=== PATIENT | male | born 1965 | race Caucasian/White ===

== ENCOUNTER 2019-09-22 11:56 | Emergency (ER) | payer SELFPAY ==
[2019-09-22 17:56] VITALS: BP 130/95; O2SAT 98
== END 2019-09-22 16:59 | disposition home or self-care (01) ==
LOC: ER 11:56
DX: R07.9 Chest pain, unspecified (principal); R00.2 Palpitations
CPT/HCPCS: 36415; 71045; 71275; 80048; 80076; 80307; 81003; 83735; 83880; 84484; 85025; 85379; 85610; 93005; 96374; 99285; J7030; Q9967

== ENCOUNTER 2023-08-12 09:40 | Observation (INO) | payer SELFPAY ==
--- OUTSIDE RECORDS SUMMARY | 2023-08-12 09:43 | XMS REPORT | Continuity of Care Document ---
Author Name Unknown Address [address] [facility]. [address] [place] [address] [facility] thconnect Address [address] [facility] [address] [place] [address] Care Team Providers Care Tape Librarian Name Role Phone Unavailable Unavailable Unavailable Encounters Start Date/Time End Date/Time Encounter Type Admission Type Attending Clinicians Care Facility Care Department Encounter ID Source 2023-05-08 11:36:11 2023-05-08 11:36:11 Outpatient [facility] S[facility] [id number] Results Test Description Test Time Test Comments Results Result Co mments Source CBC W/AUTO DIFF WITH [id number] 02:32:21* Test Item Value Reference Range Interpretation Comme nts WBC (test code = 1001) 6.6 K/UL 3.5-11.0 RBC (test code = 1002) 4.71 M/UL 4.50-6.10 HEMOGLOBIN (test code = 1003) 13.7 G/DL 13.5-17.0 HEMATOCRIT (test code = 1004) 42.0 % 40.0-51.0 MCV (test code = 1005) 89.2 fL 80.0-99.0 MCH (test code = 1006) 29.1 PG 25.0-33.0 MCHC (test code = 1007) 32.6 G/DL 31.0-36.0 RDW (test code = 1038) 13.1 % 11.5-15.0 NEUTROPHILS (test code = 1008) 68.6 % LYMPHOCYTES (test code = 1010) 14.9 % MONOCYTES (test code = 1011) 11.3 % EOSINOPHILS (test code = 1012) 3.8 % BASOPHILS (test code = 1013) 1.1 % IMMATURE GRANULOCYTES (test code = 1036) 0.3 % NUCLEATED RBCS (test code = 1065) 0.0 /100 WBC'S See_Comment [Automated messa ge] The system which generated this result transmitted reference range: 0.0. The reference range was not used to interpret this result as normal/abnormal. PLATELET COUNT (test code = 1015) 374 K/UL 130-400 ABSOLUTE NEUTROPHILS (test code = 1066) 4.51 K/UL 1.50-7.50 ABSOLUTE LYMPHOCYTES (test code = 1067) 0.98 K/UL 1.00-4.00 L ABSOLUTE MONOCYTES (test code = 1068) 0.74 K/UL 0.20-1.00 ABSOLUTE EOSINOPHILS (test code = 1040) 0.25 K/UL 0.00-0.50 ABSOLUTE BASOPHILS (test code = 1069) 0.07 K/UL 0.00-0.20 ABS IMMATURE GRANULOCYTES (test code = 1020) 0.02 K/UL 0.00-0.10 ABS NUCLEATED RBCS (test code = 50792) 0.00 K/UL 0.00-0.11 CBC WITH MANUAL [id number] 10:28:52* Test Item Value Reference Range Interpretation Comme nts WBC (test code = 1001) 13.7 K/UL 3.5-11.0 H RBC (test code = 1002) 4.94 M/UL 4.50-6.10 HEMOGLOBIN (test code = 1003) 13.8 G/DL 13.5-17.0 HEMATOCRIT (test code = 1004) 42.0 % 40.0-51.0 MCV (test code = 1005) 85.0 fL 80.0-99.0 MCH (test code = 1006) 27.9 PG 25.0-33.0 MCHC (test code = 1007) 32.9 G/DL 31.0-36.0 RDW (test code = 1038) 14.7 % 11.5-15.0 NEUTROPHILS (test code = 1008) 80.9 % LYMPHOCYTES (test code = 1010) 10.4 % MONOCYTES (test code = 1011) 2.6 % EOSINOPHILS (test code = 1012) 6.1 % BASOPHILS (test code = 1013) 0.0 % PLATELET COUNT (test code = 1015) 406 K/UL 130-400 H ABSOLUTE NEUTROPHILS (test code = 1066) 11.10 K/UL 1.50-7.50 H ABSOLUTE LYMPHOCYTES (test code = 1067) 0.91 K/UL 1.00-4.00 L ABSOLUTE MONOCYTES (test code = 1068) 1.09 K/UL 0.20-1.00 H ABSOLUTE EOSINOPHILS (test code = 1040) 0.49 K/UL 0.00-0.50 ABSOLUTE BASOPHILS (test code = 1069) 0.07 K/UL 0.00-0.20 ABS IMMATURE GRANULOCYTES (test code = 1020) 0.03 K/UL 0.00-0.10 ABS NUCLEATED RBCS (test code = 65275) 0.00 K/UL 0.00-0.11 COMMENTS (test code = 1016) (NOTE) FEW ELLIPTOCYTES PLATELETS APPEAR INCREASED PSA, [id number] 03:59:32* Test Item Value Reference Range Interpretation Comme nts PSA, TOTAL (test code = 2606) 3.05 NG/ML See_Comment NOTE: Methodolog y is Audie Blake Electrochemiluminescence Immunoassay traceable to WHO reference standard 96/760. UNLESS OTHERWISE INDICATED, ALL TESTING PERFORMED [facility] [address] [place] [address] INTERNET SOURCER: LARISSA AVILES M.D. CLIA NUMBER [id number] [facility] [place]. [id number] [Automated message] The system which generated this result transmitted reference range: <=4.00. The reference range was not used to interpret this result as normal/abnormal.
[2023-08-12 10:15] LABS: Hematocrit 46.4 % (39.6-49.0); Lymphocytes % 15.6 % (15.3-44.8); MCV 89.5 fL (80-100); MPV 6.7 fL (7.6-11.3); Platelets 337 thou/uL (152-406); RBC Red Blood Cell Count 5.19 M/uL (4.33-5.43)
[2023-08-12 10:19] LABS: Protime INR 0.97
[2023-08-12] MEDS ORDERED: ASPIRIN 81 MG CHEWABLE TABLET ONE (10:31)
[2023-08-12] MEDS ORDERED: NA CHLORIDE 0.9% 1,000 ML ONE (10:31)
[2023-08-12] MEDS ORDERED: FAMOTIDINE 20 MG/2 ML VIAL IV ONE (10:31)
[2023-08-12 10:37] LABS: ALT/SGPT 17 U/L (16-61); Albumin 3.7 g/dL (3.4-5.0); Alkaline Phosphatase 53 U/L (45-117); BUN Blood Urea Nitrogen 15 mg/dL (7-18); Bicarbonate 30 mEq/L (21-32); Bilirubin Direct 0.1 mg/dL (0-0.2); Bilirubin Indirect, Calculated 0.2 mg/dL (0.2-0.8); Bilirubin Total 0.3 mg/dL (0.2-1.0); Glomerular Filtration Rate 101 ml/min (=/>90); Glucose Level 110 mg/dL (74-106); Lipase 80 U/L (13-75); Magnesium 2.2 mg/dL (1.6-2.4); NT PRO-BNP 21 pg/mL (<125); Potassium 4.1 mEq/L (3.5-5.1); Protein, Total 6.7 g/dL (6.4-8.2); Sodium Level 139 mEq/L (136-145); Troponin High Sensitivity 3.9 pg/mL (<58.9)
[2023-08-12 10:38] LABS: AST/SGOT < 4 U/L (15-37)
--- NOTE | 2023-08-12 11:02 | RAD REPORT ---
EXAM DESCRIPTION: CTChest Abdomen Pelvis W Cont - 08/12/2023 10:51 am CLINICAL HISTORY: Chest pain;Abdominal distention COMPARISON: No comparisons TECHNIQUE: CT of the chest, abdomen, and pelvis was performed with IV contrast. All CT scans are performed using dose optimization technique as appropriate and may include automated exposure control or mA/KV adjustment according to patient size. FINDINGS: Thorax: Chest Wall: No abnormal mass Lungs: No acute abnormality. Pleura: No effusions or pneumothorax. Holly/Mediastinum: No lymphadenopathy. Small hiatal hernia. Mild thickening of distal esophagus could reflect esophagitis. Aorta/Pulmonary Arteries: Unremarkable Heart: Normal size. Abdomen/Pelvis: Liver: Too small to characterize liver lesions which are likely benign. Biliary: No biliary ductal dilatation. Stomach: No significant focal abnormality. Duodenum: No significant focal abnormality. Pancreas: No significant abnormality. Spleen: No significant abnormality. Adrenal: No suspicious lesions. Kidney/ureter: No hydronephrosis. No renal calculi. Retroperitoneum: No retroperitoneal adenopathy. Vascular: No aneurysm. Bowel: Large colonic stool burden.. No appendicitis. Peritoneum: No ascites or free air. Bladder: Question TURP defect at the bladder. Reproductive: The prostate is enlarged measuring 5.3 cm in transverse dimension. Bones: No acute fracture. Transitional L5 vertebral body Other: n/a IMPRESSION: No acute findings within the chest, abdomen, or pelvis. No pulmonary embolus or aortic a neurysm. No significant trauma identified. Small hiatal hernia with mild thickened distal esophagus which could reflect gastroesophageal reflux disease. Endoscopy could better evaluate. Large colonic stool burden.
--- NOTE | 2023-08-12 11:07 | ER ---
Nurse's Notes [facility] Name: De Arnold Jr Age: 57 yrs Sex: Male : 1965 Arrival Date: 08/12/2023 Time: 09:40 Bed 2 Private MD: Diagnosis: Chest pain, unspecified;Angina pectoris, unspecified Presentation: 08/12 09:53 Chief complaint: EMS states: left sided chest pain X 1 hour , feels like twisting pain, iw intermittent. Coronavirus screen: At this time, the client does not indicate any symptoms associated with coronavirus-19. Ebola Screen: Patient negative for fever greater than or equal to 101.5 degrees Fahrenheit, and additional compatible Ebola Virus Disease symptoms Patient denies exposure to infectious person. Patient denies travel to an Ebola-affected area in the 21 days before illness onset. No symptoms or risks identified at this time. Initial Sepsis Screen: Does the patient meet any 2 criteria? No. Patient's initial sepsis screen is negative. Does the patient have a suspected source of infection? No. Patient's initial sepsis screen is negative. Risk Assessment: Do you want to hurt yourself or someone else? Patient reports no desire to harm self or others. Onset of symptoms was August 12, 2023. 09:53 Method Of Arrival: EMS: [facility] iw 09:53 Acuity: MARIBETH 3 iw Historical: - Allergies: 09:54 No Known Allergies; iw - Home Meds: 09:54 Flomax 0.4 mg Oral capsule daily [Active]; iw - PMHx: 09:54 Cancer; iw - PSHx: 09:54 None; iw - Immunization history:: Adult Immunizations not up to date. - Social history:: Smoking status: Patient/guardian denies using tobacco, the patient reports quitting approximately 24 years ago. - Family history:: not pertinent. Screenin:13 [facility] ED Fall Risk Assessment (Adult) Score/Fall Risk Level 0 - 2 = Low Risk. Abuse iw screen: Denies threats or abuse. Denies injuries from another. Nutritional screening: No deficits noted. Tuberculosis screening: No symptoms or risk factors identified. Assessment: 10:12 General: Appears in no apparent distress. Behavior is calm, cooperative. Pain: iw Complains of pain in chest. Pain: Is intermittent. Neuro: Level of Consciousness is awake, alert, obeys commands, Oriented to person, place, time, situation, Moves all extremities. Cardiovascular: Patient's skin is warm and dry. Respiratory: Respiratory effort is even, unlabored, Respiratory pattern is regular, symmetrical. GI: Abdomen is flat, non-distended. Derm: Skin is intact, is healthy with good turgor. 10:40 Reassessment: pt c/o lower abd pain , feels like it's twisted up, he also has iw intermittent diarrhea and he has lost a lot of weight over past year. Vital Signs: 09:53 BP 120 / 91; Pulse 95; Resp 16; Temp 98.1; Pulse Ox 100% on R/A; Weight 49.44 kg; iw Height 5 ft. 7 in. ; Pain 0/10; 10:42 BP 111 / 94; Pulse 85; Resp 18; Pulse Ox 100% on R/A; iw 09:53 Body Mass Index 17.07 (49.44 kg, 170.18 cm) iw 09:53 Pain Scale: Adult iw ED Course: 09:45 Patient arrived in ED. jazmin 09:45 Cortes Monique MD is Attending Physician. jazmin 09:45 Initial lab(s) drawn, by me, sent to lab. Inserted saline lock: 20 gauge in right iw antecubital area, using aseptic technique. 09:51 Sola Bragg, RN is Primary Nurse. iw 09:54 Triage completed. iw 10:12 Arm band placed on. iw 10:12 Patient has correct armband on for positive identification. iw 10:53 CT Chest, Abdomen, Pelvis - W/Contrast In Process Unspecified. EDMS 11:05 XRAY Chest (1 view) In Process Unspecified. EDMS 11:06 Malcolm Lema is Hospitalizing Provider. jazmin 12:54 No provider procedures requiring assistance completed. Patient admitted, IV remains in iw place. Administered Medications: 10:40 Drug: Aspirin PO Chewable Tablet 162 mg PO once Route: PO; iw 11:10 Follow up: Response: No adverse reaction iw 10:40 Drug: NS 0.9% IV 1000 ml IV at 125 ml/hr continuous Route: IV; Rate: 125 ml/hr; Site: iw right antecubital; 12:55 Follow up: IV Status: Infusion continued upon admission iw 10:40 Drug: Famotidine IVP 20 mg IVP once; dilute with 10 mL 0.9% NaCl; give over 2 minutes iw Route: IVP; Site: right antecubital; 11:00 Follow up: Response: No adverse reaction iw Medication: 10:13 VIS not applicable for this client. iw Outcome: 11:06 Decision to Hospitalize by Provider. jazmin 12:55 Admitted to Med/surg accompanied by tech, via wheelchair, room 229, iw 12:55 Condition: good 12:55 Discharge instructions given to patient, family, Instructed on the need for admit, Demonstrated understanding of instructions, 12:55 Patient left the ED. iw Signatures: Dispatcher [employer] Cortes Jorgensen MD MD cha Williams, Irene RN RN iw
--- NOTE | 2023-08-12 11:07 | EDPHYS ---
Physician Documentation [facility] Name: De Arnold Jr Age: 57 yrs Sex: Male : 1965 Arrival Date: 08/12/2023 Time: 09:40 Bed 2 Private MD: ED Physician Cortes Monique HPI: 08/12 09:48 This 57 yrs old Male presents to ER via Unassigned with complaints of cp this jazmin am, last week too. 09:48 The patient or guardian reports chest pain that is located primarily in the substernal jazmin area, anterior chest wall, left. Onset: just prior to arrival. The pain radiates to the right arm. Associated signs and symptoms: Pertinent positives: dizziness. The chest pain is described as squeezing. Duration: The patient or guardian reports a single episode, that is now resolved. Modifying factors: The symptoms are alleviated by nothing. the symptoms are aggravated by nothing. Severity of pain: At its worst the pain was moderate in the emergency department the pain has resolved and did so just prior to arrival. The patient has experienced similar episodes in the past, a few times. Historical: - Allergies: 09:54 No Known Allergies; iw - Home Meds: :54 Flomax 0.4 mg Oral capsule daily [Active]; iw - PMHx: 09:54 Cancer; iw - PSHx: :54 None; iw - Immunization history:: Adult Immunizations not up to date. - Social history:: Smoking status: Patient/guardian denies using tobacco, the patient reports quitting approximately 24 years ago. - Family history:: not pertinent. ROS: 09:48 Constitutional: Negative for fever, chills, and weight loss, Eyes: Negative for injury, jazmin pain, redness, and discharge, ENT: Negative for injury, pain, and discharge, Neck: Negative for injury, pain, and swelling, Respiratory: Negative for shortness of breath, cough, wheezing, and pleuritic chest pain, Abdomen/GI: Negative for abdominal pain, nausea, vomiting, diarrhea, and constipation, Back: Negative for injury and pain, : Negative for injury, bleeding, discharge, and swelling, MS/Extremity: Negative for injury and deformity, Skin: Negative for injury, rash, and discoloration, Neuro: Negative for headache, weakness, numbness, tingling, and seizure, Psych: Negative for depression, anxiety, suicide ideation, homicidal ideation, and hallucinations, Allergy/Immunology: Negative for hives, rash, and allergies, Endocrine: Negative for neck swelling, polydipsia, polyuria, polyphagia, and marked weight changes, Hematologic/Lymphatic: Negative for swollen nodes, abnormal bleeding, and unusual bruising, 09:48 Cardiovascular: Positive for chest pain, of the chest, Exam: 09:48 Constitutional: This is a well developed, well nourished patient who is awake, alert, jazmin and in no acute distress. Head/Face: Normocephalic, atraumatic. Eyes: Pupils equal round and reactive to light, extra-ocular motions intact. Lids and lashes normal. Conjunctiva and sclera are non-icteric and not injected. Cornea within normal limits. Periorbital areas with no swelling, redness, or edema. ENT: Nares patent. No nasal discharge, no septal abnormalities noted. Tympanic membranes are normal and external auditory canals are clear. Oropharynx with no redness, swelling, or masses, exudates, or evidence of obstruction, uvula midline. Mucous membranes moist. Neck: Trachea midline, no thyromegaly or masses palpated, and no cervical lymphadenopathy. Supple, full range of motion without nuchal rigidity, or vertebral point tenderness. No Meningismus. Chest/axilla: Normal chest wall appearance and motion. Nontender with no deformity. No lesions are appreciated. Cardiovascular: Regular rate and rhythm with a normal S1 and S2. No gallops, murmurs, or rubs. Normal PMI, no JVD. No pulse deficits. Respiratory: Lungs have equal breath sounds bilaterally, clear to auscultation and percussion. No rales, rhonchi or wheezes noted. No increased work of breathing, no retractions or nasal flaring. Abdomen/GI: Soft, non-tender, with normal bowel sounds. No distension or tympany. No guarding or rebound. No evidence of tenderness throughout. Back: No spinal tenderness. No costovertebral tenderness. Full range of motion. Male : Normal genitalia with no discharge or lesions. Skin: Warm, dry with normal turgor. Normal color with no rashes, no lesions, and no evidence of cellulitis. MS/ Extremity: Pulses equal, no cyanosis. Neurovascular intact. Full, normal range of motion. Neuro: Awake and alert, GCS 15, oriented to person, place, time, and situation. Cranial nerves II-XII grossly intact. Motor strength 5/5 in all extremities. Sensory grossly intact. Cerebellar exam normal. Normal gait. Psych: Awake, alert, with orientation to person, place and time. Behavior, mood, and affect are within normal limits. 10:18 ECG was reviewed by the Attending Physician. [facility] Vital Signs: 09:53 BP 120 / 91; Pulse 95; Resp 16; Temp 98.1; Pulse Ox 100% on R/A; Weight 49.44 kg; iw Height 5 ft. 7 in. ; Pain 0/10; 10:42 BP 111 / 94; Pulse 85; Resp 18; Pulse Ox 100% on R/A; iw 09:53 Body Mass Index 17.07 (49.44 kg, 170.18 cm) iw 09:53 Pain Scale: Adult iw MDM: 09:45 Patient medically screened. jazmin 09:46 Patient medically screened. jazmin 09:52 Differential diagnosis: abnormal EKG, acute myocardial infarction, acute pericarditis, jazmin anxiety, chest wall pain, Cholelithiasis pancreatitis, peptic ulcer disease, stable angina, unstable angina. HEART Score: History: Slightly Suspicious (0), ECG: Non specific repolarization disturbance / LBTB / PM (1), Age: > 45 and < 65 years (1), Risk Factors: 1 or 2 risk factors (1), [+ Family HX] Troponin: < or = 1 x Normal Limit (0). The patient was given aspirin in the Emergency Department. Data reviewed: vital signs, nurses notes, lab test result(s), EKG, radiologic studies, plain films. Consideration of Admission/Observation Patient was admitted/placed on observation. Escalation of care including admission/observation considered. I considered the following discharge prescriptions or medication management in the emergency department Medications were administered in the Emergency Department. See 09:47 Order name: Basic Metabolic Panel; Complete Time: 11:08/12 09:47 Order name: CBC with Diff; Complete Time: 11:08/12 09:47 Order name: LFT's; Complete Time: 11: jazmin 08/12 09:47 Order name: Magnesium; Complete Time: 11: [facility] 08/12 09:47 Order name: NT PRO-BNP; Complete Time: 11:03 [facility] 08/12 09:47 Order name: PT-INR; Complete Time: 11:03 [facility] 08/12 09:47 Order name: Troponin HS; Complete Time: 11:03 [facility] 08/12 09:47 Order name: Lipase; Complete Time: 11:03 [facility] 08/12 09:47 Order name: Urinalysis w/ reflexes; Complete Time: 12:12 [facility] 08/12 09:47 Order name: XRAY Chest (1 view); Complete Time: 12:12 [facility] 08/12 10:38 Order name: CT Chest, Abdomen, Pelvis - W/Contrast; Complete Time: 11:03 [facility] 08/12 09:47 Order name: EKG; Complete Time: 09:48 [facility] 08/12 12:02 Order name: CONS Physician Consult EDDC 08/12 09:47 Order name: Cardiac monitoring; Complete Time: 09:52 [facility] 08/12 09:47 Order name: EKG - Nurse/Tech; Complete Time: 09:52 [facility] 08/12 09:47 Order name: IV Saline Lock; Complete Time: 10:05 [facility] 08/12 09:47 Order name: Labs collected and sent; Complete Time: 10:05 [facility] 08/12 09:47 Order name: O2 Per Protocol; Complete Time: 09:52 [facility] 08/12 09:47 Order name: O2 Sat Monitoring; Complete Time: 09:52 [facility] EC:18 Rate is 88 beats/min. Rhythm is regular. QRS [place] is Normal. [place] interval is normal. QRS jazmin interval is normal. QT interval is normal. No Q waves. T waves are Normal. No ST changes noted. Clinical impression: NSR w/ Non-specific ST/T Changes and No evidence of ischemia. Interpreted by me. Reviewed by me. Administered Medications: 10:40 Drug: Aspirin PO Chewable Tablet 162 mg PO once Route: PO; iw 11:10 Follow up: Response: No adverse reaction iw 10:40 Drug: NS 0.9% IV 1000 ml IV at 125 ml/hr continuous Route: IV; Rate: 125 ml/hr; Site: iw right antecubital; 12:55 Follow up: IV Status: Infusion continued upon admission iw 10:40 Drug: Famotidine IVP 20 mg IVP once; dilute with 10 mL 0.9% NaCl; give over 2 minutes iw Route: IVP; Site: right antecubital; 11:00 Follow up: Response: No adverse reaction iw Disposition Summary: 08/12/23 11:06 Hospitalization Ordered Notes: Hospitalization Status: Observation jazmin Provider: Malcolm Lema cha Location: Telemetry/MedSurg (observation) jazmin Condition: Stable jazmin Problem: new jazmin Symptoms: have improved jazmin Bed/Room Type: Standard [facility] Room Assignment: 229(08/12/23 12:12) bd Diagnosis - Chest pain, unspecified jazmin - Angina pectoris, unspecified jazmin Forms: - Medication Reconciliation Form jazmin - SBAR form jazmin - Leadership Thank You Letter jazmin Signatures: Dispatcher [employer] EDKaylen Barakat Corey, MD MD cha Williams, Irene, RN RN iw Corrections: (The following items were deleted from the chart) 12:12 11:06 jazmin bd
--- NOTE | 2023-08-12 11:12 | RAD REPORT ---
EXAM DESCRIPTION: RAD - Chest Single View - 08/12/2023 11:04 am CLINICAL HISTORY: CHEST PAIN COMPARISON: Chest Single View dated 09/22/2019 FINDINGS: Lines: None. Lungs: No evidence of edema or pneumonia. Pleural: No significant pleural effusions or pneumothorax. Cardiac: The heart size is within normal limits. Mediastinum: Within normal limits. Bones: No acute fractures. Other: None IMPRESSION: No acute cardiopulmonary disease.
[2023-08-12 11:24] LABS: Specific Gravity 1.014 (1.005-1.030); Urine Bacteria None Seen /HPF (<20); Urine Bilirubin NEGATIVE (Negative); Urine Blood Negative (Negative); Urine Clarity Turbid (Clear); Urine Color Light-Yellow (Yellow); Urine Glucose NEGATIVE (Negative); Urine Mucus Slight /HPF (None Seen); Urine Protein NEGATIVE (Negative); Urine RBC <5 /HPF (None Seen); Urine Urobilinogen Normal (Normal); Urine pH 7.5 (5.0-7.0)
--- NOTE | 2023-08-12 11:46 | P.HP ---
Certification for Inpatient Patient admitted to: Observation With expected LOS: <2 Midnights Patient will require the following post-hospital care: None Practitioner: I am a practitioner with admitting privileges, knowledge of patient current condition, hospital course, and medical plan of care. Services: Services provided to patient in accordance with Admission requirements found in Title 42 Section 412.3 of the Code of Federal Regulations Patient History Date of Service: 08/12/23 Reason for admission: Chest pain r/o History of Present Illness: De Arnold is a 57-year-old male with past medical history of throat cancer who presents to the ED with complaints of chest pain this morning as well as last week. His chest pain is located in the substernal area anterior chest wall. Pain radiates to the right arm associated with dizziness and nausea. Chest pain is described as squeezing. He states he has not had this kind of chest pain before. He has a history of throat cancer which was stage III, underwent 5-FU chemotherapy and greater than 20 radiations sessions to his neck making him at a higher risk for CAD. He has a heart score of 2. He reports losing weight in the recent 6 months. He reports his weight loss to taking Flomax but continues to take it so that he can urinate. Initial vitals BP 120 / 91; Pulse 95; Resp 16; Temp 98.1; Pulse Ox 100% on R/A; Weight 49.44 kg EKG shows Rate is 88 beats/min. Rhythm is regular. QRS [place] is Normal. [place] interval is normal. QRS interval is normal. QT interval is normal. No Q waves. T waves are Normal. No ST changes noted. Clinical impression: NSR w/ Non-specific ST/T Changes and No evidence of ischemia. Laboratory evaluation troponin 21, lipase 80, UA negative, other results unrema rkable. Chest x-ray reports "No acute cardiopulmonary disease." CT chest abdomen pelvis with contrast reports "No acute findings within the chest, abdomen, or pelvis. No pulmonary embolus or aortic aneurysm. No significant trauma identified. Small hiatal hernia with mild thickened distal esophagus which could reflect gastroesophageal reflux disease. Endoscopy could better evaluate." De will be admitted to hospitalist service for further evaluation and treatment. Allergies No Known Allergies Allergy (Unverified 08/12/23 12:15) Home Medications: Tamsulosin HCl 0.4 mg PO BID 08/12/23 Review of Systems Cardiovascular: Chest Pain (radiating down the right arm) Gastrointestinal: Nausea Physical Examination - Physical Exam General: Alert, In no apparent distress, Oriented x3, Cachectic HEENT: Atraumatic, Normocephalic, PERRLA Neck: Supple, 2+ carotid pulse no bruit, JVD not distended Respiratory: Clear to auscultation bilaterally, Normal air movement Cardiovascular: No edema, Normal pulses, Regular rate/rhythm, Normal S1 S2 Capillary refill: <2 Seconds Gastrointestinal: Normal bowel sounds, Soft and benign Musculoskeletal: No clubbing, No swelling, No contractures Integumentary: No rashes, No breakdown, No significant lesion, No tenderness/swelling Neurological: Normal speech, Normal strength at 5/5 x4 extr, Normal tone - Studies Laboratory Data (last 24 hrs) 08/12/23 08/12/23 08/12/23 10:04 10:04 10:04 WBC 6.40 Hgb 15.5 Hct 46.4 Plt Count 337 PT 10.7 INR 0.97 Sodium 139 Potassium 4.1 BUN 15 Creatinine 0.84 Glucose 110 H Magnesium 2.2 Total Bilirubin 0.3 AST < 4 L ALT 17 Alkaline Phosphatase 53 Lipase 80 H Assessment and Plan - Plan Assessment and plan Chest pain r/o ACS - EK beats/min. Rhythm is regular. QRS [place] is Normal. [place] interval is normal. QRS interval is normal. QT interval is normal. No Q waves. T waves are Normal. No ST changes noted. Clinical impression: NSR w/ Non-specific ST/T Changes and No evidence of ischemia. - Vital signs stable - Troponin 21, Serial pending - Ordered transthoracic echocardiogram - Chest x-ray reports "No acute cardiopulmonary disease." - Management plan: - Consult Cardiology (Dr. Shetty) - recommendations appreciated - S/P aspirin 162 mg PO x 1 in ED - Start daily baby aspirin, statin - lipid panel pending - Symptom control with PRN acetaminophen, nitroglycerin, morphine - If CAD is confirmed, plan to start beta-milo, TA-inhibitor/ARB, statin with 24 hours Elevated Lipase - lipase 80 -monitor in AM labs -IVF given in the ED Hiatal hernia -De is aware -CT chest abdomen pelvis with contrast reports No acute findings within the chest, abdomen, or pelvis. No pulmonary embolus or aortic aneurysm. No significant trauma identified. Small hiatal hernia with mild thickened distal esophagus which could reflect gastroesophageal reflux disease. -Follow up outpatient for EGD -Protonix 40 mg Daily DVT ppx lovenox DNR LOS 2 days Discharge Plan: Home Plan to discharge in: 24 Hours - Advance Directives Does patient have a Living Will: No Does patient have a Durable POA for Healthcare: No Time Spent Managing Pts Care (In Minutes): 50
[2023-08-12] MEDS ORDERED: NITROGLYCERIN 0.4 MG/TAB SL PRN (12:50)
[2023-08-12] MEDS ORDERED: MORPHINE 2 MG/ML SYR IV PRN (12:50)
[2023-08-12] MEDS ORDERED: ACETAMINOPHEN 500 MG TAB PO PRN (13:21)
[2023-08-12 13:33] VITALS: BMI 17.0
[2023-08-12 13:52] LABS: Absolute Lymphocytes (CBC) 1.1 K/uL (0.7-4.9); Lymphocytes % 18.1 % (15.3-44.8); MCV 89.7 fL (80-100); MPV 6.6 fL (7.6-11.3); Platelets 334 thou/uL (152-406); RBC Red Blood Cell Count 5.13 M/uL (4.33-5.43)
[2023-08-12 14:04] LABS: Potassium 4.7 mEq/L (3.5-5.1)
--- NOTE | 2023-08-12 14:26 | EKG ---
Test Date: 2023-08-12 Test Time: 13:06:00 Manager Benefit: HOA MEASUREMENT RESULTS: Intervals: Rate: 74 NM: 134 QRSD: 86 QT: 376 QTc: 417 [place]: P: 82 NM: 134 QRS: 83 T: 84 INTERPRETIVE STATEMENTS: Normal sinus rhythm Normal ECG Compared to ECG 09/22/2019 11:56:20 No significant changes Electronically Signed On 08-12-23 14:25:35 DIESEL CRANE OPERATOR by Ramy Connelly
--- NOTE | 2023-08-12 14:27 | EKG ---
Test Date: 2023-08-12 Test Time: 09:48:45 Sampler Radioactive Waste: SWETHA MEASUREMENT RESULTS: Intervals: Rate: 88 NH: 128 QRSD: 90 QT: 356 QTc: 430 [place]: P: 84 NH: 128 QRS: 84 T: 83 INTERPRETIVE STATEMENTS: Normal sinus rhythm Right atrial enlargement Borderline ECG Compared to ECG 09/22/2019 11:56:20 Atrial abnormality now present Electronically Signed On 08-12-23 14:25:54 LEAN CONSULTANT by Ramy Connelly
[2023-08-12] MEDS: TAMSULOSIN 0.4 MG SR CAP PO SCH (20:44)
[2023-08-12] MEDS: ATORVASTATIN 40 MG TAB PO SCH (20:44)
[2023-08-13 05:20] LABS: Absolute Lymphocytes (CBC) 1.4 K/uL (0.7-4.9); Hematocrit 42.4 % (39.6-49.0); Lymphocytes % 21.6 % (15.3-44.8); MPV 6.8 fL (7.6-11.3); Platelets 311 thou/uL (152-406); RBC Red Blood Cell Count 4.77 M/uL (4.33-5.43)
[2023-08-13 05:30] LABS: Magnesium 2.2 mg/dL (1.6-2.4); Phosphorus 2.8 mg/dL (2.5-4.9); Potassium 4.1 mEq/L (3.5-5.1)
[2023-08-13] MEDS: ASPIRIN EC 81 MG TAB PO SCH (08:50)
[2023-08-13] MEDS: ENOXAPARIN 40 MG/0.4 ML SQ SCH (08:50)
--- NOTE | 2023-08-13 10:49 | P.CNS ---
Date of Consult: 08/13/23 Chief Complaint: Chest pain r/o History of Present Illness: patient with PMH of throat cancer s/p rosa elena, says he is in remission presented with chest pressure sensation and right arm pain, report having such episodes in the past, patient is chest pain free on interview today. Allergies No Known Allergies Allergy (Unverified 08/12/23 12:15) Home Medications: Tamsulosin HCl 0.4 mg PO BID 08/12/23 - Social History Alcohol use: No CD- Drugs: No Caffeine use: Yes Place of Residence: Home Review of Systems 10-point ROS is otherwise unremarkable Physical Examination Temp Pulse Resp BP Pulse Ox 97.3 F 82 18 108/73 97 08/13/23 04:00 08/13/23 04:00 08/13/23 04:00 08/13/23 04:00 08/13/23 04:00 General: Alert HEENT: Atraumatic Neck: Supple Respiratory: Clear to auscultation bilaterally Cardiovascular: No edema, Normal S1 S2, No murmurs Gastrointestinal: Normal bowel sounds Laboratory Data (last 24 hrs) 08/12/23 05:00 WBC Cancelled Hgb Cancelled Hct Cancelled Plt Count Cancelled - Problems (1) Chest pain Current Visit: Yes Status: Acute Plan: please get nuclear stress test in am, keep NPO past midnight. Patient echo was reviewed and it is normal
--- NOTE | 2023-08-13 11:47 | ECHO ---
HEIGHT: 5 ft 7 in WEIGHT: 109 lb 0 oz DATE OF STUDY: 08/13/[address]: Lety Woodard NP 2-DIMENSIONAL: YES M.MODE: YES DOPPLER: YES COLOR FLOW: YES TDS: PORTABLE: YES DEFINITY: BUBBLE STUDY: DIAGNOSIS: CHEST PAIN, RULE OUT ACUTE CORNONARY SYNDROME CARDIAC HISTORY: CATHERIZATION: NO SURGERY: NO PROSTHETIC VALVE: NO PACEMAKER: NO MEASUREMENTS (cm) DIASTOLIC (NORMALS) SYSTOLIC (NORMALS) IVSd 0.7 (0.6-1.2) LA Diam 1.8 (1.9-4.0) LVEF 64% LVIDd 3.5 (3.5-5.7) LVIDs 2.3 (2.0-3.5) %FS 34% LVPWd 0.9 (0.6-1.2) Ao Diam 3.0 (2.0-3.7) 2 DIMENSIONAL ASSESSMENT: RIGHT ATRIUM: NORMAL LEFT ATRIUM: NORMAL RIGHT VENTRICLE: NORMAL LEFT VENTRICLE: NORMAL TRICUSPID VALVE: NORMAL MITRAL VALVE: NORMAL PULMONIC VALVE: NORMAL AORTIC VALVE: NORMAL PERICARDIAL EFFUSION: SMALL LOCALIZED POSTERIOR AORTIC ROOT: NORMAL LEFT VENTRICULAR WALL MOTION: NORMAL DOPPLER/COLOR FLOW: NORMAL COMMENTS: 1. NORMAL LEFT VENTRICULAR SYSTOLIC FUNCTION, EJECTION FRACTION 55-60%, NORMAL WALL MOTION 2. NORMAL DIASTOLIC FUNCTION 3. SMALL LOCALIZED POSTERIOR PERICARDIAL EFFUSION 4. NORMAL FILLING PRESSURE TECHNOLOGIST: CALVIN HARDEN
[2023-08-13] MEDS: PANTOPRAZOLE 40MG TABLET PO SCH (12:15)
--- NOTE | 2023-08-13 13:50 | P.PN ---
Date of Service: 08/13/23 Subjective: Complaining of urinary frequency, urgency ROS: 10 point ROS as noted above, otherwise negative Physical exam GEN: Alert, oriented, NAD HEENT: Normal conjunctiva, sclera anicteric CV: Regular rate and rhythm, no edema Pulm: Nonlabored respirations on room air ABD: Soft, mild epigastric abdominal tenderness, nondistended MSK: No joint tenderness Integumentary: No rashes Neuro: Normal speech, normal affect Vitals reviewed Assessment and plan Chest pain r/o ACS Cardiology consulted, echocardiogram reportedly normal Cardiology request tress test ordered for morning of 08/14 Continue aspirin, statin BPH Has been taking Flomax at home at night which helps with the urinary frequency/urgency Patient reports a multitude of side effects with Flomax including orthostatic hypotension, vomiting/diarrhea Will perform pre and postvoid residual bladder scan Recommend outpatient follow-up with urology Work and other options for management BPH aside from Flomax Elevated Lipase Very mildly elevated, repeat lipase level in the morning Does have some mild epigastric tenderness but also CT showed thickened distal esophagus which may be contributing to epigastric pain Tolerating diet Hiatal hernia with CT showing distal esophageal thickening -De is aware -CT chest abdomen pelvis with contrast reports No acute findings within the chest, abdomen, or pelvis. No pulmonary embolus or aortic aneurysm. No significant trauma identified. Small hiatal hernia with mild thickened distal esophagus which could reflect gastroesophageal reflux disease. -Follow up outpatient for EGD -Protonix 40 mg Daily DVT ppx lovenox DNR LOS 2 days Time Spent Managing Pts Care (In Minutes): 35
[2023-08-13] MEDS: ENSURE ENLIVE 237 ML CAN PO SCH (20:16)
[2023-08-14 00:33] VITALS: O2SAT 98
[2023-08-14 04:43] LABS: Absolute Lymphocytes (CBC) 1.3 K/uL (0.7-4.9); Hematocrit 45.4 % (39.6-49.0); Lymphocytes % 14.9 % (15.3-44.8); MCV 88.9 fL (80-100); MPV 6.8 fL (7.6-11.3); Platelets 350 thou/uL (152-406); RBC Red Blood Cell Count 5.11 M/uL (4.33-5.43)
[2023-08-14 04:55] LABS: Magnesium 2.3 mg/dL (1.6-2.4); Phosphorus 3.4 mg/dL (2.5-4.9); Potassium 4.7 mEq/L (3.5-5.1)
[2023-08-14] MEDS ORDERED: REGADENOSON 0.4 MG/5 ML SYR IV ONE (09:10)
[2023-08-14] MEDS: ONDANSETRON 4 MG/2 ML VIAL IV ONE (09:33)
[2023-08-14] MEDS ORDERED: ONDANSETRON 4 MG/2 ML VIAL ONE (09:36)
[2023-08-14 11:00] VITALS: BP 110/74; TEMP 97.1
--- NOTE | 2023-08-14 12:36 | RAD REPORT ---
EXAM DESCRIPTION: NM - Rest Stress Cardiac Imaging - 08/14/2023 10:03 am CLINICAL HISTORY: CP Chest pain. COMPARISON: No comparisons TECHNIQUE: The patient was administered approximately 10mCi of Tc 99m Sestamibi prior to resting SPE CT imaging of the heart. The patient was then administered approximately 30 mCi of Tc 99m Sestamibi f ollowing exercise or pharmacologic stress. Multiplanar SPECT images were reviewed. FINDINGS: No stress induced ischemic defect is seen to suggest stress induced ischemia. No fixed def ect is seen to suggest hibernating myocardium or scarred myocardium. The end diastolic volume is 75 ml, the end systolic volume is 31 ml, and the ejection fraction is 59 %. IMPRESSION: No stress induced ischemia.
--- NOTE | 2023-08-14 13:45 | P.DS ---
Admission Date: 08/12/23 Discharge Date: 08/14/23 Disposition: ROUTINE DISCHARGE Discharge Condition: GOOD Reason for Admission: Chest pain r/o Brief History of Present Illness: De Arnold is a 57-year-old male with past medical history of throat cancer who presents to the ED with complaints of chest pain this morning as well as last week. His chest pain is located in the substernal area anterior chest wall. Pain radiates to the right arm associated with dizziness and nausea. Chest pain is described as squeezing. He states he has not had this kind of chest pain before. He has a history of throat cancer which was stage III, underwent 5-FU chemotherapy and greater than 20 radiations sessions to his neck making him at a higher risk for CAD. He has a heart score of 2. He reports losing weight in the recent 6 months. He reports his weight loss to taking Flomax but continues to take it so that he can urinate. Initial vitals BP 120 / 91; Pulse 95; Resp 16; Temp 98.1; Pulse Ox 100% on R/A; Weight 49.44 kg EKG shows Rate is 88 beats/min. Rhythm is regular. QRS [place] is Normal. [place] interval is normal. QRS interval is normal. QT interval is normal. No Q waves. T waves are Normal. No ST changes noted. Clinical impression: NSR w/ Non-specific ST/T Changes and No evidence of ischemia. Laboratory evaluation troponin 21, lipase 80, UA negative, other results unremarkable. Chest x-ray reports "No acute cardiopulmonary disease." CT chest abdomen pelvis with contrast reports "No acute findings within the chest, abdomen, or pelvis. No pulmonary embolus or aortic aneurysm. No significant trauma identified. Small hiatal hernia with mild thickened distal esophagus which could reflect gastroesophageal reflux disease. Endoscopy could better evaluate." De will be admitted to hospitalist service for further evaluation and treatment. Hospital Course: Problem List Chest pain r/o ACS BPH Elevated Lipase Hiatal hernia with CT showing distal esophageal thickening Patient was admitted to the hospital for chest pain. He was evaluated by cardiology who recommended echocardiogram and stress test be performed, echocardiogram was performed and showed normal left ventricular ejection fraction, normal diastolic function, small localized posterior pericardial effusion, normal filling pressure. Stress test was performed and showed no stress-induced ischemia. A CT was performed of his chest abdomen pelvis which showed distal esophageal thickening, this was discussed with the patient recommend outpatient evaluation for by GI for EGD, may reflect GERD but cannot rule out more findings such as malignancy. Of note patient also reported urinary frequency, urgency. He was taking Flomax but had significant orthostatic hypotension, syncope and other adverse effects, we will discontinue this medication and start alfuzosin 10 mg once daily. Recommend outpatient follow-up with urology, prostate is enlarged on CT as well as 5.3 cm. Patient also reported poor oral nutrition since he had his radiation to his throat, he will also be sent Ensure to supplement his nutrition. New medications: Protonix 40 mg once daily-for GERD/reflux because of CT scan findings of the thickening of the distal esophagus Alfuzosin 10 mg by mouth once daily for BPH/urinary problems Ensure-twice daily for nutrition Please follow-up with: Dr. Metcalf with urology as soon as possible Gastrointestinal physician-information for Dr. Tony has been provided, you should follow-up with the GI doctor had to have direct visualization of your distal esophagus with EGD A primary care doctor in the area in 1 to 2 weeks Vital Signs/Physical Exam: Temp Pulse Resp BP Pulse Ox 97.1 F 87 16 110/74 99 08/14/23 08:00 08/14/23 08:00 08/14/23 08:00 08/14/23 08:00 08/14/23 08:00 General: Alert, In no apparent distress, Oriented x3 HEENT: Atraumatic, PERRLA Neck: Supple, JVD not distended Respiratory: Clear to auscultation bilaterally, Normal air movement Cardiovascular: Regular rate/rhythm, Normal S1 S2 Gastrointestinal: Normal bowel sounds, No tenderness Musculoskeletal: No tenderness Integumentary: No rashes Neurological: Normal speech, Normal tone Laboratory Data at Discharge: WBC 8.40 thou/uL (4.3-10.9) 08/14/23 04:12 Hgb 15.3 g/dL (13.6-17.9) 08/14/23 04:12 Hct 45.4 % (39.6-49.0) 08/14/23 04:12 Plt Count 350 thou/uL (152-406) 08/14/23 04:12 PT 10.7 SECONDS (9.5-12.5) 08/12/23 10:04 INR 0.97 08/12/23 10:04 Sodium 135 mEq/L (136-145) L 08/14/23 04:12 Potassium 4.7 mEq/L (3.5-5.1) D 08/14/23 04:12 BUN 25 mg/dL (7-18) H 08/14/23 04:12 Creatinine 0.74 mg/dL (0.70-1.30) 08/14/23 04:12 Glucose 100 mg/dL (74-106) 08/14/23 04:12 Phosphorus 3.4 mg/dL (2.5-4.9) 08/14/23 04:12 Magnesium 2.3 mg/dL (1.6-2.4) 08/14/23 04:12 Total Bilirubin 0.3 mg/dL (0.2-1.0) 08/12/23 10:04 AST < 4 U/L (15-37) L 08/12/23 10:04 ALT 17 U/L (16-61) 08/12/23 10:04 Alkaline Phosphatase 53 U/L (45-117) 08/12/23 10:04 Triglycerides 108 mg/dL (<150) 08/12/23 13:42 Cholesterol 203 mg/dL (<200) H 08/12/23 13:42 HDL Cholesterol 62 mg/dL (40-60) H 08/12/23 13:42 Cholesterol/HDL Ratio 3.27 08/12/23 13:42 Lipase 143 U/L (13-75) H 08/14/23 04:12 Home Medications: Alfuzosin HCl [Alfuzosin HCl ER] 10 mg PO DAILY #30 tab 08/14/23 Ensure Enlive 237 ml PO BID #60 can 08/14/23 Pantoprazole [Protonix Tab] 40 mg PO DAILY #30 tab 08/14/23 New Medications: Alfuzosin HCl [Alfuzosin HCl ER] 10 mg PO DAILY #30 tab Ensure Enlive 237 ml PO BID #60 can Pantoprazole [Protonix Tab] 40 mg PO DAILY #30 tab Physician Discharge Instructions: Patient was admitted to the hospital for chest pain. He was evaluated by cardiology who recommended echocardiogram and stress test be performed, echocardiogram was performed and showed normal left ventricular ejection fraction, normal diastolic function, small localized posterior pericardial effusion, normal filling pressure. Stress test was performed and showed no stress-induced ischemia. A CT was performed of his chest abdomen pelvis which showed distal esophageal thickening, this was discussed with the patient recommend outpatient evaluation for by GI for EGD, may reflect GERD but cannot rule out more findings such as malignancy. Of note patient also reported urinary frequency, urgency. He was taking Flomax but had significant orthostatic hypotension, syncope and other adverse effects, we will discontinue this medication and start alfuzosin 10 mg once daily. Recommend outpatient follow-up with urology, prostate is enlarged on CT as well as 5.3 cm. Patient also reported poor oral nutrition since he had his radiation to his throat, he will also be sent Ensure to supplement his nutrition. New medications: Protonix 40 mg once daily-for GERD/reflux because of CT scan findings of the thickening of the distal esophagus Alfuzosin 10 mg by mouth once daily for BPH/urinary problems Ensure-twice daily for nutrition Please follow-up with: Dr. Metcalf with urology as soon as possible Gastrointestinal physician-information for Dr. Tony has been provided, you should follow-up with the GI doctor had to have direct visualization of your distal esophagus with EGD A primary care doctor in the area in 1 to 2 weeks Diet: Regular Activity: Ad alicia Followup: SANDEE IGNACIO [Primary Care Provider] - 1-2 Weeks Kamron Paulino MD [ASSOCIATE-ACTIVE - CAN ADMIT] - 1-2 Weeks Judson Metcalf [ACTIVE - CAN ADMIT] - 1-2 Weeks Time spent managing pt's care (in minutes): 30
--- NOTE | 2023-08-14 14:25 | TREADPHA ---
DX: CHEST PAIN Date of Study: 08/14/2023 Ht: 5' 7 " Wt: 109 lb 0 oz Consulting Physician: BORIS MEDICATIONS: TYLENOL, ASPIRIN, LIPITOR, MORPHINE, NITROSTAT, PROTONIX HISTORY: DENIES ANY MEDICAL HEALTH HISTORY PHYSICIAL EXAMINATION: RESTING B.P.: 113/82 RESTING H.R.: 82 RESTING EKG: SINUS RHYTHM PROTOCOL: PHARMACOLOGIC EXERCISE TIME: 3:30 B.P. AT [place] STRESS: 97/67 IMPRESSION: LEXISCAN INJECTED. CARDIOLITE INJECTED - SEE NUCLEAR MEDICINE REPORT. NO CHEST PAIN, NO ARRHYTHMIAS NOTED. NO VENTRICULAR TACHYCARDIA, NO SUPRAVENTRICULAR TACHYCARDIA NOTED.
== END 2023-08-14 14:25 | disposition home or self-care (01) ==
LOC: ER 09:40 → ERHOLD 11:58 → 2ND 12:28
PROVIDERS: ADMIT Internal Medicine; ATTEND Hospitalist
DX: R07.9 Chest pain, unspecified (principal); K44.9 Diaphragmatic hernia without obstruction or gangrene; R39.15 Urgency of urination; R35.0 Frequency of micturition; N40.0 Benign prostatic hyperplasia without lower urinary tract symptoms; R63.4 Abnormal weight loss; E63.8 Other specified nutritional deficiencies; K21.9 Gastro-esophageal reflux disease without esophagitis; Z85.21 Personal history of malignant neoplasm of larynx
CPT/HCPCS: 36415; 71045; 71260; 74177; 78452; 80048; 80061; 80076; 81001; 83690; 83735; 83880; 84100; 84484; 85025; 85610; 93005; 93017; 93306; 96361; 96374; 99285; A9500; G0378; J1650; J2405; J2785; J7030; Q9967

== ENCOUNTER 2023-09-14 20:18 | Emergency (ER) | payer SELFPAY ==
--- OUTSIDE RECORDS SUMMARY | 2023-09-14 20:21 | XMS REPORT | Continuity of Care Document ---
Author Name Unknown Address [address] [place] [address] [facility] Address [address] [place] [address] Care Team Providers Care Collection Specialist Name Role Phone Unavailable Unavailable Unavailable Encounters Start Date/Time End Date/Time Encounter Type Admission Type Attending Clinicians Care Facility Care Department Encounter ID Source 2023-05-08 11:36:11 2023-05-08 11:36:11 Outpatient [facility] [id number] Results Test Description Test Time Test Comments Results Result Co mments Source CBC W/AUTO DIFF WITH [id number] 02:32:21* Test Item Value Reference Range Interpretation [...] 0.00-0.10 ABS NUCLEATED RBCS (test code = 47151) 0.00 K/UL 0.00-0.11 CBC WITH MANUAL [id number] 10:28:52* Test Item Value Reference Range Interpretation [...] 0.00-0.10 ABS NUCLEATED RBCS (test code = 25486) 0.00 K/UL 0.00-0.11 COMMENTS (test code = 1016) (NOTE) FEW ELLIPTOCYTES PLATELETS APPEAR INCREASED PSA, [id number] 03:59:32* Test Item Value Reference Range Interpretation Comme nts PSA, TOTAL (test code = 2606) 3.05 NG/ML See_Comment NOTE: Methodolog y is Audie Blake Electrochemiluminescence Immunoassay traceable to WHO reference standard 96/760. UNLESS OTHERWISE INDICATED, ALL TESTING PERFORMED [facility] [address] [place] [address] SILK CONDITIONER: LARISSA AVILES M.D. CLIA NUMBER [id number] [facility]. [id number] [Automated message] The system which generated this result transmitted reference range: <=4.00. The reference range was not used to interpret this result as normal/abnormal.
[2023-09-14] MEDS ORDERED: HYDROMORPHONE HCL 1 MG/ML INJ ONE (20:42)
[2023-09-14 20:48] LABS: Absolute Basophils 0.1 K/uL (0-0.5); Absolute Eosinophils 0.3 K/uL (0-0.5); Absolute Lymphocytes (CBC) 0.8 K/uL (0.7-4.9); Absolute Monocytes 1.4 K/uL (0.1-1.3); Absolute Neutrophil 12.4 K/uL (1.8-8.0); Basophils % 0.6 % (0-1.3); Eosinophils % 1.8 % (0-4.4); Hematocrit 33.6 % (39.6-49.0); Hemoglobin 11.5 g/dL (13.6-17.9); Lymphocytes % 5.1 % (15.3-44.8); MCHC 34.1 g/dL (32.0-36.0); MCV 87.8 fL (80-100); MPV 6.3 fL (7.6-11.3); Monocytes % 9.3 % (3.3-12.3); Neutrophils % 83.2 % (41.7-73.7); Platelets 379 thou/uL (152-406); RBC Red Blood Cell Count 3.83 M/uL (4.33-5.43); Red Cell Distribution Width 14.9 % (12.1-15.2)
[2023-09-14 21:02] LABS: Albumin 3.2 g/dL (3.4-5.0); Anion Gap 8.9 mEq/L (5.0-15.0); Bilirubin Total 0.2 mg/dL (0.2-1.0); Globulin 3.3 g/dL (2.3-3.5); Potassium 3.9 mEq/L (3.5-5.1); Protein, Total 6.5 g/dL (6.4-8.2)
[2023-09-14] MEDS ORDERED: NA CHLORIDE 0.9% 1,000 ML ONE (21:05)
[2023-09-14] MEDS ORDERED: ONDANSETRON 4 MG/2 ML VIAL ONE (21:05)
[2023-09-14 21:35] LABS: Specific Gravity 1.016 (1.005-1.030); Sqamous Epithelial None Seen /HPF (None Seen); Urine Bacteria 20-50 /HPF (<20); Urine Bilirubin NEGATIVE (Negative); Urine Blood 1+ (Negative); Urine Clarity Extremely Turbid (Clear); Urine Color Yellow (Yellow); Urine Culture Reflex Order REFLEXED; Urine Glucose NEGATIVE (Negative); Urine Ketones NEGATIVE (Negative); Urine Microscopic Reflex YN ORDER UMIC; Urine Nitrite 2+ (Negative); Urine Protein 1+ (Negative); Urine Urobilinogen Normal (Normal); Urine WBC >50 /HPF (<5); Urine Yeast (Budding) Few /HPF (None Seen); Urine pH 7.5 (5.0-7.0)
--- NOTE | 2023-09-14 22:17 | RAD REPORT ---
EXAM DESCRIPTION: CT - Abdomen Pelvis W Contrast - 09/14/2023 9:49 pm CLINICAL HISTORY: Abdominal pain COMPARISON: none. TECHNIQUE: Computed axial tomography of the abdomen pelvis was obtained. 100 cc Isovue-300 was admin istered intravenously. Oral contrast was not requested which limits evaluation of bowel and appendix All CT scans are performed using dose optimization technique as appropriate and may include automated exposure control or mA/KV adjustment according to patient size. FINDINGS: The liver, spleen, pancreas, adrenal and kidneys appear unremarkable. There is no evidence of diverticulitis. Fluid within nondilated small bowel Appendix not clearly seen. Moderate prostatic enlargement. Bladder wall thickening. IMPRESSION: Bladder wall thickening may be secondary to a bladder outlet obstruction from an enlarge d prostate. Fluid within nondilated small bowel may indicate enteritis
--- NOTE | 2023-09-14 22:23 | RAD REPORT ---
EXAM DESCRIPTION: US - Scrotum Testicles - 09/14/2023 9:27 pm CLINICAL HISTORY: Testicular pain COMPARISON: None FINDINGS: Right testicle measures 2.6 x 2 x 2.6 centimeters. Echotexture is homogeneous. Normal bloo d flow Left testicle measures 3.4 x 2 x 1.8 centimeters. Echotexture is homogeneous. Normal blood flow The epididymides are normal in size and echotexture. Mildly increased flow right epididymis 1 centimeter right spermatocele. 1 centimeter left spermatocele Small bilateral hydroceles Right scrotal skin thickening IMPRESSION: Mildly increased flow right epididymis may indicate a mild epididymitis Right scrotal skin thickening Small left hydrocele 1 centimeter bilateral spermatoceles
[2023-09-14] MEDS ORDERED: CEFTRIAXONE 1000 MG/VIAL ONE (23:52)
[2023-09-15] MEDS ORDERED: KETOROLAC 30 MG/ML INJ ONE (00:34)
--- NOTE | 2023-09-15 00:45 | EDPHYS ---
Physician Documentation [facility] Name: De Arnold Jr Age: 57 yrs Sex: Male : 1965 Arrival Date: 09/14/2023 Time: 20:18 Bed 14 Private MD: ED Physician Cortes Monique HPI: 09/13 21:00 This 57 yrs old Male presents to ER via EMS with complaints of Right Testicle Pain. cp 21:00 The patient presents with swelling, that is mild, of the right testicle, tenderness, cp that is severe, of the right testicle. Onset: The symptoms/episode began/occurred this morning, and became worse today. Associated signs and symptoms: Pertinent positives: abdominal pain, Pertinent negatives: constipation, diarrhea, fever, hematuria, vomiting. Severity of symptoms: in the emergency department the symptoms are actually worse, markedly. Historical: - Allergies: 20:29 No Known Allergies; rv - Home Meds: 20:29 Flomax 0.4 mg Oral capsule daily [Active]; rv - PMHx: 20:29 Cancer; rv - PSHx: 20:29 None; rv - Immunization history:: Adult Immunizations unknown. - Social history:: Smoking status: unknown. ROS: 21:05 Constitutional: Negative for body aches, chills, fever, poor PO intake, cp 21:05 Eyes: Negative for injury, pain, redness, and discharge, cp 21:05 ENT: Negative for drainage from ear(s), ear pain, sore throat, difficulty swallowing, difficulty handling secretions, 21:05 Cardiovascular: Negative for chest pain, palpitations, 21:05 Respiratory: Negative for cough, shortness of breath, wheezing, 21:05 Abdomen/GI: Positive for abdominal pain, Negative for nausea, vomiting, and diarrhea, 21:05 Back: Negative for pain at rest, pain with movement, 21:05 : Positive for testicular pain of the right testicle, Negative for hematuria, burning with urination, 21:05 Neuro: Negative for altered mental status, headache, weakness, 21:05 All other systems are negative, Exam: 21:10 Head/Face: Normocephalic, atraumatic. cp 21:10 Constitutional: The patient appears in no acute distress, alert, awake, non-toxic, well developed, well nourished, uncomfortable, 21:10 Eyes: Periorbital structures: appear normal, Conjunctiva: normal, no exudate, no injection, Sclera: no appreciated abnormality, Lids and lashes: appear normal, bilaterally, 21:10 ENT: External ear(s): are unremarkable, Nose: is normal, Mouth: Lips: moist, Oral mucosa: pink and intact, moist, Posterior pharynx: Airway: no evidence of obstruction, patent, 21:10 Chest/axilla: Inspection: normal, 21:10 Cardiovascular: Rate: normal, Rhythm: regular, 21:10 Respiratory: the patient does not display signs of respiratory distress, Respirations: normal, no use of accessory muscles, no retractions, labored breathing, is not present, Breath sounds: are clear throughout, no decreased breath sounds, no stridor, no wheezing, 21:10 Abdomen/GI: Inspection: abdomen appears normal, Bowel sounds: active, all quadrants, Palpation: soft, in all quadrants, moderate abdominal tenderness, in the suprapubic area, rebound tenderness, is not appreciated, voluntary guarding, is elicited in the suprapubic area, 21:10 : Male external genitalia: swelling, of the right testicle is noted, testicle, of the epididymis area, that is mild, tenderness, of the right testicle is noted, of the epididymis area, that is severe, 21:10 Neuro: Orientation: to person, place \T\ time. Mentation: is normal, Vital Signs: 20:27 BP 126 / 97; Pulse 98; Resp 18; Temp 99.4; Pulse Ox 98% ; Weight 53.07 kg; Height 5 ft. rv 7 in. ; 23:04 BP 112 / 76; Pulse 93; Resp 18; Pulse Ox 99% on R/A; rv 09/14 00:00 BP 114 / 87; Pulse 87; Resp 17; Pulse Ox 100% on R/A; rv 01:00 BP 106 / 75; Pulse 82; Resp 17; Temp 98; Pulse Ox 97% on R/A; rv 09/13 20:27 Body Mass Index 18.32 (53.07 kg, 170.18 cm) rv MDM: 09/13 20:32 Patient medically screened. cp 21:00 Differential diagnosis: UTI, urinary retention, prostatitis, urethritis, testicular cp torsion, epididymitis. 09/14 00:43 Data reviewed: vital signs, nurses notes, lab test result(s), radiologic studies, CT cp scan, ultrasound. 00:43 I considered the following discharge prescriptions or medication management in the emergency department Medications were administered in the Emergency Department. See MAR. Care significantly affected by the following chronic conditions: Cancer. Counseling: I had a detailed discussion with the patient and/or guardian regarding the historical points, exam findings, and any diagnostic results supporting the discharge/admit diagnosis, lab results, radiology results, the need for outpatient follow up, a urologist, to return to the emergency department if symptoms worsen or persist or if there are any questions or concerns that arise at home. Response to treatment: the patient's symptoms have markedly improved after treatment, and as a result, I will discharge patient. 09/13 20:37 Order name: CBC with Diff; Complete Time: 21:07 cp 09/13 20:37 Order name: CMP; Complete Time: 21:07 cp 09/13 20:37 Order name: Lipase; Complete Time: 21:07 cp 09/13 20:37 Order name: Urinalysis w/ reflexes; Complete Time: 22:34 cp 09/13 22:35 Interpretation: Reviewed. 09/13 21:38 Order name: Urine Culture EDMS 09/13 20:34 Order name: US Scrotum Testicles; Complete Time: 22:34 rv 09/13 21:07 Order name: CT Abd/Pelvis - IV Contrast Only; Complete Time: 22:34 cp 09/13 20:37 Order name: IV Saline Lock; Complete Time: 20:47 cp 09/13 20:37 Order name: Labs collected and sent; Complete Time: 20:47 cp 09/14 00:03 Order name: Bladder Scanner; Complete Time: 00:31 cp 09/14 00:42 Order name: Jacome Leg Bag; Complete Time: 00:44 cp Administered Medications: 09/13 20:46 Drug: HYDROmorphone IVP 1 mg IVP once Route: IVP; Site: right forearm; rv 09/14 01:13 Follow up: Response: No adverse reaction; Marked relief of symptoms 09/13 21:22 Drug: NS 0.9% IV 1000 ml IV at 1 bolus Per protocol; 1000 mL bolus Route: IV; Rate: 1 rv bolus; Site: right forearm; 23:06 Follow up: IV Status: Completed infusion; IV Intake: 1000ml rv 09/14 00:05 Drug: Rocephin IV 1 grams IV at calculated rate once; Given slow IV push per pharmacy pf1 instructions Route: IV; Rate: calculated rate; Site: right forearm; 00:45 Drug: Ketorolac IVP 15 mg IVP once Route: IVP; Site: right forearm; rv 01:14 Follow up: Response: No adverse reaction rv 01:13 Drug: LevOfloxacin PO 500 mg PO once Route: PO; rv 01:13 Follow up: Response: Medication administered at discharge. rv 01:14 Not Given (NOT APPROPRIATE AT THIS TIMEe): ondansetron 4 mg IVP once; over 2 minutes rv Disposition Summary: 09/15/23 00:44 Discharge Ordered Notes: Location: Home cp Problem: new cp Symptoms: have improved cp Condition: Stable cp Diagnosis - Cystitis, unspecified without hematuria cp - Retention of urine, unspecified cp Followup: cp - With: Judson Metcalf MD - When: 5 - 6 days - Reason: Recheck today's complaints Discharge Instructions: - Discharge Summary Sheet cp - Acute Urinary Retention, Male cp - Urinary Tract Infection, Adult cp Forms: - Medication Reconciliation Form cp - Thank You Letter cp - Antibiotic Education cp - Prescription Opioid Use cp - Patient Portal Instructions cp - Leadership Thank You Letter cp Prescriptions: - diclofenac sodium 50 mg Oral tablet, delayed release (enteric coated) - take 1 tablet ORAL route every 12 hours; 20 tablet; Refills: 0, Product cp Selection Permitted - levofloxacin 500 mg Oral tablet - take 1 tablet ORAL route once daily for 8-10 days morning 09-16-2023; 9 tablet; cp Refills: 0, Product Selection Permitted Signatures: Dispatcher [employer] EDIL Cortes Maria PA PA cp Vitaly Galeano RN RN rv Felisa Vora RN RN pf1 Corrections: (The following items were deleted from the chart) 09/13 20:29 20:29 Allergies: Aspirin; rv rv 09/15 00:55 09/14 21:10 Constitutional: The patient appears in no acute distress, alert, awake, cp non-toxic, well developed, well nourished, uncomfortable, cp 09/15 00:55 09/14 21:10 Head/Face: Normocephalic, atraumatic. cp cp 09/15 21:10 Eyes: Periorbital structures: appear normal, Conjunctiva: normal, no cp exudate, no injection, Sclera: no appreciated abnormality, Lids and lashes: appear normal, bilaterally, cp 09/15 21:10 ENT: External ear(s): are unremarkable, Nose: is normal, Mouth: Lips: cp moist, Oral mucosa: pink and intact, moist, Posterior pharynx: Airway: no evidence of obstruction, patent, cp 09/16 99:09/14 21:10 Chest/axilla: Inspection: normal, cp cp 09/16 99:09/14 21:10 Cardiovascular: Rate: normal, Rhythm: regular, cp cp 09/15 21:10 Respiratory: the patient does not display signs of respiratory distress, cp Respirations: normal, no use of accessory muscles, no retractions, labored breathing, is not present, Breath sounds: are clear throughout, no decreased breath sounds, no stridor, no wheezing, cp 09/16 99:09/14 21:10 Abdomen/GI: Inspection: abdomen appears normal, Bowel sounds: active, all cp quadrants, Palpation: soft, in all quadrants, moderate abdominal tenderness, in the suprapubic area, rebound tenderness, is not appreciated, voluntary guarding, is elicited in the suprapubic area, cp 09/15 21:10 : Male external genitalia: swelling, of the right testicle is noted, cp testicle, of the epididymis area, that is mild, tenderness, of the right testicle is noted, of the epididymis area, that is severe, cp 09/15 21:10 Neuro: Orientation: to person, place \T\ time. Mentation: is normal, cp cp
--- NOTE | 2023-09-15 00:45 | ER ---
Nurse's Notes [facility] Name: De Arnold Jr Age: 57 yrs Sex: Male : 1965 Arrival Date: 09/14/2023 Time: 20:18 Bed 14 Private MD: Diagnosis: Cystitis, unspecified without hematuria;Retention of urine, unspecified Presentation: 09/13 20:27 Chief complaint: EMS states: woke up this morning with severe right testicular pain, rv with nausea, denies discharge, able to urinate. no fever. redness noted. Coronavirus screen: At this time, the client does not indicate any symptoms associated with coronavirus-19. Ebola Screen: No symptoms or risks identified at this time. Initial Sepsis Screen: Does the patient meet any 2 criteria? No. Patient's initial sepsis screen is negative. Does the patient have a suspected source of infection? No. Patient's initial sepsis screen is negative. Risk Assessment: Do you want to hurt yourself or someone else? Patient reports no desire to harm self or others. Onset of symptoms was September 14, 2023. 20:27 Method Of Arrival: EMS: [facility] rv 20:27 Acuity: MARIBETH 2 rv Triage Assessment: 20:29 General: Appears uncomfortable, Behavior is calm, cooperative. Pain: Complains of pain rv in testicle, right. Neuro: Level of Consciousness is awake, alert, obeys commands, Oriented to person, place, time, situation. Cardiovascular: Capillary refill < 3 seconds Patient's skin is warm and dry. Respiratory: Airway is patent Breath sounds are clear bilaterally. : on scrotum Reports pain in right testicle. Historical: - Allergies: 20:29 No Known Allergies; rv - Home Meds: 20:29 Flomax 0.4 mg Oral capsule daily [Active]; rv - PMHx: 20:29 Cancer; rv - PSHx: 20:29 None; rv - Immunization history:: Adult Immunizations unknown. - Social history:: Smoking status: unknown. Screenin:31 [facility] ED Fall Risk Assessment (Adult) History of falling in the last 3 months, rv including since admission No falls in past 3 months (0 pts) Score/Fall Risk Level 0 - 2 = Low Risk Oriented to surroundings, Maintained a safe environment, Educated pt \T\ family on fall prevention, incl call for assistance when getting out of bed, Assessed \T\ reinforced patient's understanding of fall precautions. Abuse screen: Denies threats or abuse. Denies injuries from another. Nutritional screening: No deficits noted. Tuberculosis screening: No symptoms or risk factors identified. Vital Signs: 20:27 BP 126 / 97; Pulse 98; Resp 18; Temp 99.4; Pulse Ox 98% ; Weight 53.07 kg; Height 5 ft. rv 7 in. ; 23:04 BP 112 / 76; Pulse 93; Resp 18; Pulse Ox 99% on R/A; rv 09/14 00:00 BP 114 / 87; Pulse 87; Resp 17; Pulse Ox 100% on R/A; rv 01:00 BP 106 / 75; Pulse 82; Resp 17; Temp 98; Pulse Ox 97% on R/A; rv 09/13 20:27 Body Mass Index 18.32 (53.07 kg, 170.18 cm) rv ED Course: 09/13 20:27 Patient arrived in ED. rv 20:28 Triage completed. rv 20:31 Arm band placed on right wrist. rv 20:32 Cortes Maria PA is PHCP. cp 20:32 Cortes Monique MD is Attending Physician. cp 20:32 Patient has correct armband on for positive identification. rv 20:32 No provider procedures requiring assistance completed. rv 20:47 CBC with Diff Sent. rv 20:47 CMP Sent. rv 20:47 Lipase Sent. rv 20:47 Urinalysis w/ reflexes Sent. rv 20:47 Inserted saline lock: 20 gauge in right forearm, using aseptic technique. Blood rv collected. 21:29 US Scrotum Testicles In Process Unspecified. EDMS 21:50 CT Abd/Pelvis - IV Contrast Only In Process Unspecified. EDMS 09/14 00:30 Bladder scan completed. 490ml. rv 00:43 Judson Metcalf MD is Referral Physician. cp 01:16 IV discontinued, intact, bleeding controlled, No redness/swelling at site. Pressure rv dressing applied. 01:16 Jacome cath inserted, using sterile technique, 16 Fr., by md, balloon inflated, to rv gravity drainage, other LEG BAG. Administered Medications: 09/13 20:46 Drug: HYDROmorphone IVP 1 mg IVP once Route: IVP; Site: right forearm; rv 09/14 01:13 Follow up: Response: No adverse reaction; Marked relief of symptoms rv 09/13 21:22 Drug: NS 0.9% IV 1000 ml IV at 1 bolus Per protocol; 1000 mL bolus Route: IV; Rate: 1 rv bolus; Site: right forearm; 23:06 Follow up: IV Status: Completed infusion; IV Intake: 1000ml rv 09/14 00:05 Drug: Rocephin IV 1 grams IV at calculated rate once; Given slow IV push per pharmacy pf1 instructions Route: IV; Rate: calculated rate; Site: right forearm; 00:45 Drug: Ketorolac IVP 15 mg IVP once Route: IVP; Site: right forearm; rv 01:14 Follow up: Response: No adverse reaction rv 01:13 Drug: LevOfloxacin PO 500 mg PO once Route: PO; rv 01:13 Follow up: Response: Medication administered at discharge. rv 01:14 Not Given (NOT APPROPRIATE AT THIS TIMEe): ondansetron 4 mg IVP once; over 2 minutes rv Medication: 09/13 20:31 VIS not applicable for this client. rv Intake: 23:06 IV: 1000ml; Total: 1000ml. rv Outcome: 09/14 00:44 Discharge ordered by MD. cp 01:16 Discharged to home via wheelchair, with family, rv 01:16 Condition: good 01:16 Discharge instructions given to patient, Instructed on discharge instructions, follow up and referral plans. Demonstrated understanding of instructions, follow-up care, medications, Prescriptions given X 2, 01:17 Patient left the ED. rv Signatures: Dispatcher [employer] EDWY Cortes Maria PA PA cp Vitaly Galeano RN RN rv Felisa Vora RN RN pf1 Corrections: (The following items were deleted from the chart) 09/13 20:29 20:29 Allergies: Aspirin; rv rv 09/14 00:08 00:05 Rocephin IV 1 grams IV at calculated rate in right antecubital pf1 pf1
[2023-09-15] MEDS ORDERED: levoFLOXacin 250 MG TAB ONE (01:07)
[2023-09-15 05:11] VITALS: BP 106/75; TEMP 98; O2SAT 97
== END 2023-09-15 01:17 | disposition home or self-care (01) ==
LOC: ER 20:18
DX: N30.90 Cystitis, unspecified without hematuria (principal)
CPT/HCPCS: 36415; 51702; 74177; 76870; 80053; 81001; 83690; 85025; 87086; 87088; 96361; 96374; 96375; 99285; J0696; J1170; J2405; J7030; Q9967

== ENCOUNTER 2024-01-18 15:46 | Emergency (ER) | payer OTHER, SELFPAY ==
--- OUTSIDE RECORDS SUMMARY | 2024-01-18 15:49 | XMS REPORT | Continuity of Care Document ---
Author Name Unknown Address [address] [facility] [address] [place] [address] [facility] thconnect Address [address] [facility] [address] [place] [address] Care Team Providers Care Communications Supervisor Name Role Phone TJ HATFIELD Attending Clinician Unavailable Tj Hatfield Attending Clinician Unavailable AIDEN VASQUEZ Attending Clinician UnavailKATE Marion Attending Clinician Unavailable LAB53 Attending Clinician Unavailable TRED08 Attending Clinician Unavailable LAB08 Attending Clinician Unavailable ALESSANDRA MEEKS Attending Clinician Unava ilable MIMI OLMSTEAD Attending Clinician Unavailab KARLOS Rocha Attending Clinician Unava ilable LAB90 Attending Clinician Unavailable Tj Hatfield Admitting Clinician Unavailable Payers Payer Name Policy Type Policy Number Effective Date Expirati on Date Source AETNA [facility] 5 O [facility] 94 ON 9 [id number] 2023 00:00:00 [employer]ETNA [facility] 2 [id number] 2023 00:00:00 Problems Condition Name Condition Details Condition Category Status Onset Date Resolution Date Last Treatment Date Treating Clinician Comments Source Hospital discharge follow-up Hospital discharge follow-up Disease Active 09-23 00:00: 00 Malia Seybold - Externa l Bladder outlet obstructio n Bladder outlet obstructio n Disease Active 09-23 00:00: 00 Malia Bentona simone Walters catheter in place Walters catheter in place Disease Active 09-23 00:00: 00 Malia Chong - Serenitya l Bilateral hydrocele Bilateral hydrocele Disease Active 09-23 00:00: 00 Malia Bentona simone Urinary retention due to benign prostatic hyperplasi a Urinary retention due to benign prostatic hyperplasi a Disease Active 09-23 00:00: 00 Malia Bentona simone History of squamous cell carcinoma History of squamous cell carcinoma Disease Active 09-23 00:00: 00 Malia Bentona simone Dysphagia Dysphagia Disease Active 09-23 00:00: 00 Malia Chong - Externa simone Allergies, Adverse Reactions, Alerts Allergy Name Allergy Type Status Severity Reaction(s) Onset Date Inactive Date Treating Clinician Comments Source tamsulos in DA Active SV DIZZINESS, N/V 11-25 00:00: 00 [facility] DA Active MO PROLONGED ERECTION 11-25 00:00: 00 [facility] l Propensi ty to adverse reaction s Active 10-15 00:00: 00 Malia Bentona simone Tamsulos in Propensi ty to adverse reaction s Active Other 09-23 00:00: 00 Malia Bentona simone Social History Social Habit Start Date Stop Date Quantity Comments Source Sexual orientation Soco pedro Chong - External History of Social function 2024-01-13 00:00:00 2024-01-13 00:00:00 Malia Chong - External Tobacco use and exposure 2023-09-24 00:00:00 2023-09-24 00:00:00 Smokeless tobacco non-user Malia Chong - External Sex assigned at 1965 00:00:00 1965 00:00:00 Malia Chong - External Smoking Status Start Date Stop Date Source Never smoked tobacco Malia Chong - External Medications Ordered Medication Name Filled Medication Name Start Date Stop Date Current Medication? Ordering Clinician Indication Dosage Frequency Signature (SIG) Comments Components Source Sulfamethox azole-Trime thoprim (BACTRIM DS OR) 01-12 14:51: 36 Yes Take by mouth. Malia nichols TRIMETHOPRI M-SULFAMETH OXAZOLE (Bactrim DS) 800-160 MG oral Tablet 12-21 00:00: 00 01-01 04:59 :00 Yes [id number] 1{tbl} Take 1 tablet by mouth every 12 hours for 10 days. Malia nichols Gabapentin 100 MG oral Capsule 11-25 00:00: 00 12-26 04:59 :00 Yes 200mg 2 capsules (200 mg total). Malia nichols Lidocaine HCl, PF, (XYLOCAINE) 1 % injection Solution 11-25 00:00: 00 12-26 04:59 :00 Yes 20mg 2 mL (20 mg total). Malia nichols Amoxicillin -Pot Clavulanate 875-125 MG oral Tablet 11-17 00:00: 00 Yes [id number] 1{tbl} Take 1 tablet by mouth 2 times daily. Malia nichols Tadalafil (Cialis) 5 MG oral Tablet 09-29 00:00: 00 10-15 00:00 :00 No [id number] 5mg Take 1 tablet (5 mg total) by mouth daily. Malia nichols levoFLOXaci n (Levaquin) 500 MG oral Tablet 09-29 00:00: 00 10-15 04:59 :00 No 500mg Take 1 tablet (500 mg total) by mouth daily for 15 days. Malia nichols Vital Signs Vital Name Observation Time Observation Value Comments S ánegl Systolic blood pressure 2024-01-13 19:51:00 150 mm[Hg] Malia Valdes External Diastolic blood pressure 2024-01-13 19:51:00 90 mm[Hg] Malia Valdes External Heart rate 2024-01-13 19:51:00 93 /min Malia Seybold - External Body temperature 2024-01-13 19:51:00 36.67 Jessica Malia Seybold - External Respiratory rate 2024-01-13 19:51:00 16 /min Maila Seybold - External Body height 2024-01-13 19:51:00 170.2 cm Malia Seybold - External Body weight 2024-01-13 19:51:00 54.885 kg Malia Seybold - External BMI 2024-01-13 19:51:00 18.95 kg/m2 Malia Seybold - External Systolic blood pressure 2023-12-18 19:22:00 111 mm[Hg] Malia Seybold - External Diastolic blood pressure 2023-12-18 19:22:00 77 mm[Hg] Malia Seybold - External Heart rate 2023-12-18 19:22:00 96 /min Malia Seybold - External Body temperature 2023-12-18 19:22:00 36.72 Jessica Malia Seybold - External Respiratory rate 2023-12-18 19:22:00 16 /min Malia Seybold - External Body height 2023-12-18 19:22:00 170.2 cm Malia Seybold - External Body weight 2023-12-18 19:22:00 55.157 kg Malia Seybold - External BMI 2023-12-18 19:22:00 19.05 kg/m2 Malia Seybold - External Oxygen saturation in Arterial blood by Pulse oximetry 2023-12-18 19:22:00 99 /min Malia Seybold - External BMI 2023-11-15 19:48:00 19.11 kg/m2 Malia Seybold - External Systolic blood pressure 2023-11-15 19:48:00 153 mm[Hg] patient is very anxious but feels okay Malia Seybold - External Diastolic blood pressure 2023-11-15 19:48:00 97 mm[Hg] patient is very anxious but feels okay Malia Seybold - External Body temperature 2023-11-15 19:48:00 36.61 Jessica Malia Seybold - External Respiratory rate 2023-11-15 19:48:00 16 /min Malia Seybold - External Body height 2023-11-15 19:48:00 170.2 cm Malia Seybold - External Body weight 2023-11-15 19:48:00 55.339 kg Malia Seybold - External Systolic blood pressure 2023-10-16 20:22:00 146 mm[Hg] Malia Seybold - External Diastolic blood pressure 2023-10-16 20:22:00 88 mm[Hg] Malia Seybold - External Heart rate 2023-10-16 20:22:00 87 /min Malia Seybold - External Body temperature 2023-10-16 20:22:00 36.83 Jessica Malia Seybold - External Respiratory rate 2023-10-16 20:22:00 16 /min Malia Seybold - External Body height 2023-10-16 20:22:00 170.2 cm Malia Seybold - External Body weight 2023-10-16 20:22:00 55.792 kg Malia Seybold - External BMI 2023-10-16 20:22:00 19.26 kg/m2 Malia Seybold - External Systolic blood pressure 2023-09-30 18:33:00 158 mm[Hg] Malia Seybold - External Diastolic blood pressure 2023-09-30 18:33:00 109 mm[Hg] Malia Seybold - External Heart rate 2023-09-30 18:33:00 128 /min Malia Seybold - External Body temperature 2023-09-30 18:33:00 36.78 Jessica Malia Seybold - External Respiratory rate 2023-09-30 18:33:00 18 /min Malia Seybold - External Body height 2023-09-30 18:33:00 170.2 cm Malia Seybold - External Body weight 2023-09-30 18:33:00 55.792 kg Malia Seybold - External BMI 2023-09-30 18:33:00 19.26 kg/m2 Malia Seybold - External Oxygen saturation in Arterial blood by Pulse oximetry 2023-09-30 18:33:00 98 /min Malia Seybold - External Body weight 2023-09-26 20:09:00 56.7 kg Malia Seybold - External BMI 2023-09-26 20:09:00 19.29 kg/m2 Maliarichelle Chong - External Systolic blood pressure 2023-09-24 13:18:00 128 mm[Hg] Malia Johnsonold - External Diastolic blood pressure 2023-09-24 13:18:00 72 mm[Hg] Maliarichelle Chong - External Heart rate 2023-09-24 13:18:00 80 /min Maliarichelle Chong - External Body temperature 2023-09-24 13:18:00 36.61 Jessica Malia Chong - External Respiratory rate 2023-09-24 13:18:00 18 /min Maliarichelle Chong - External Body height 2023-09-24 13:18:00 171.5 cm Malia Chong - External Body weight 2023-09-24 13:18:00 56.813 kg Malia Chong - External BMI 2023-09-24 13:18:00 19.33 kg/m2 Malia Chong - External Oxygen saturation in Arterial blood by Pulse oximetry 2023-09-24 13:18:00 98 /min Maliarichelle Chong - External Procedures Procedure Date / Time Performed Performing Clinicia n Source ENT LARYNGOSCOPY DIAGNOSTIC EXAM 2023-09-26 20:37:54 Karlos Costa Arlette - External Encounters Start Date/Time End Date/Time Encounter Type Admission Type Attending [facility] Care Department Encounter ID Source 2024-04-15 14:00:00 2024-04-15 14:00:00 Outpatient TJ HATFIELD [id number] Malia Chong 2024-02-12 15:15:00 2024-02-12 15:15:00 Outpatient TJ HATFIELD [id number] Malia Chong 2024-01-13 15:30:00 2024-01-13 15:30:00 Outpatient TJ HATFIELD [id number] Malia Chong 2024-01-10 08:30:00 2024-01-10 08:30:00 Outpatient TJ HATFIELD [id number] Malia Chong 2024-01-09 00:00:00 2024-01-09 00:00:00 [facility] [id number] [facility]24-01-09 00:00:00 2024-01-09 00:00:00 Outpatient TJ HATFIELD MALIA [facility]ARTMANN [id number] [facility] 2023-12-30 09:30:00 2023-12-30 09:30:00 Outpatient LIUTJ BELTRAN MALIA HARTMANN [id number] [facility] 2023-12-26 04:56:00 2023 10:05:00 Inpatient EL Tj Hatfield MEDI.01 [id number] [address] [place] [address] 2023-12-26 07:30:00 2023-12-26 07:30:00 Outpatient LIU TJ HARTMANN [id number] Malia [facility] 2023-12-22 00:00:00 2023-12-22 00:00:00 Outpatient AIDEN VASQUEZ [id number] [facility] 2023-12-21 00:00:00 2023-12-21 00:00:00 Outpatient LIUJOSE LUIS BELTRANShashank HARTMANN [id number] [facility] 2023-12-18 15:00:00 2023-12-18 15:00:00 Outpatient [facility]QUE[facility] [id number] [facility] 2023-12-17 10:30:00 2023-12-17 10:30:00 Outpatient KATE KATZ [id number] [facility] 2023-12-13 00:00:00 2023-12-13 00:00:00 Outpatient AIDEN VASQUEZ [id number] [facility] 2023-12-11 12:05:00 2023-12-11 12:05:00 Outpatient MALIA HARTMANN [id number] [facility] 2023-12-11 11:40:00 2023-12-11 11:40:00 Outpatient RADHA HARTMANN [id number] [facility] 2023-12-06 15:00:00 2023-12-06 15:00:00 Outpatient AIDEN VASQUEZ [id number] Malia [facility] 2023-11-27 00:00:00 2023-11-27 00:00:00 Outpatient AIDEN VASQUEZ [facility] [id number] [facility] 2023-11-26 00:00:00 2023-11-26 00:00:00 Outpatient LIU, TJ MALIA HARTMANN [id number] [facility] 2023-11-18 00:00:00 2023-11-18 00:00:00 Outpatient AIDEN VASQUEZ MAL[facility] [id number] [facility] 2023-11-15 16:45:00 2023-11-15 16:45:00 Outpatient TRED08 MALIA MALIA [id number] [facility] 2023-11-15 16:45:00 2023-11-15 16:45:00 Outpatient TRED08 MALIA [facility]MANN [id number] [facility] 2023-11-15 16:30:00 2023-11-15 16:30:00 Outpatient TRED08 MALIA [facility] [id number] [facility] 2023-11-15 16:10:00 2023-11-15 16:10:00 Outpatient MALIA HARTMANN [id number] [facility] 2023-11-15 16:05:00 2023-11-15 16:05:00 Outpatient LAB08 MALIA MALIA [id number] [facility] 2023-11-15 15:00:00 2023-11-15 15:00:00 Outpatient AIDEN VASQUEZ MALIA HARTMANN [id number] [facility] 2023-11-15 00:00:00 2023-11-15 00:00:00 Outpatient LIU, TJShashank HARTMANN [id number] [facility] 2023-11-14 00:00:00 2023-11-14 00:00:00 Outpatient LIU, TJShashank HARTMANN [id number] Malia Seybold 2023-10-24 08:30:00 2023-10-24 08:30:00 Outpatient KATE KATZ [id number] [facility] 2023-10-16 15:30:00 2023-10-16 15:30:00 Outpatient LIUTJ BELTRAN MALIA HARTMANN [id number] Malia Seybold 2023-10-14 08:45:00 2023-10-14 08:45:00 Outpatient LIUTJ BELTRAN MALIA HARTMANN [id number] Malia Seybold 2023-10-11 13:45:00 2023-10-11 13:45:00 Outpatient JEANNAALESSANDRA HU MALIA HARTMANN [id number] Malia Seybold 2023-10-08 16:30:00 2023-10-08 16:30:00 Outpatient MIMI OLMSTEAD MALIA HARTMANN [id number] Malia Seybold 2023-10-07 00:00:00 2023-10-07 00:00:00 Outpatient LIUTJ BELTRAN MALIA HARTMANN [id number] Malia Seybold 2023-09-30 14:05:00 2023-09-30 14:05:00 Outpatient MALIA HRATMANN [id number] Malia Seybold 2023-09-30 14:00:00 2023-09-30 14:00:00 Outpatient MALIA HARTMANN [id number] Malia Seybold 2023-09-30 13:30:00 2023-09-30 13:30:00 Outpatient LIUTJ BELTRAN MALIA HARTMANN [id number] Malia Seybold 2023-09-27 15:45:00 2023-09-27 15:45:00 Outpatient JEANNA ALESSANDRANINI HARTMANN [id number] Malia Seybold 2023-09-27 00:00:00 2023-09-27 00:00:00 Outpatient [facility] KARLOS Bautista [id number] Malia Seybold 2023-09-26 15:40:00 2023-09-26 15:40:00 Outpatient MALIA HARTMANN [id number] Malia Seybold 2023-09-26 15:15:00 2023-09-26 15:15:00 Outpatient [facility] KARLOS Bautista [id number] Malia Seybold 2023-09-24 09:15:00 2023-09-24 09:15:00 Outpatient LAB90 MALIA HARTMANN [id number] Malia Chong 2023-09-24 08:30:00 2023-09-24 08:30:00 Outpatient MIMI OLMSTEAD [id number] Malia Walkersherigeovanna 2023-05-08 11:36:11 2023-05-08 11:36:11 Outpatient [facility] [id number] Aman Results Test Description Test Time Test Comments Results Result Co mments Source DRUGS OF ABUSE SCREEN [id number] 06:22:00* Test Item Value Reference Range Interpretation Comme nts URN COCAINE (test code = COCAURN) NEGATIVE NEGATIVE URN CANNABINOIDS (test code = CANNABURN) POSITIVE NEGATIVE A URN AMPHETAMINE (test code = AMPHETURN) NEGATIVE NEGATIVE URN BARBITURATE (test code = BARBITURN) NEGATIVE NEGATIVE URN BENZODIAZEPINE (test code = BENZOURN) NEGATIVE NEGATIVE Cut-off v alue:200 ng/mL URN OPIATES (test code = OPIATURN) NEGATIVE NEGATIVE Cut-off value:20 00 ng/mL URN PHENCYCLIDINE (PCP) (test code = PHENCURN) NEGATIVE NEGATIVE Cutoffs:B arbiturates 200 ng/mLBenzodiazepines 200 ng/mLTHC Cannabinoids 50 ng/mLOpiates(Morphine) 2000 ng/mLAmphetamine 1000 ng/mLCocaine 300 ng/mLPCP phencyclidine 25 ng/mL Unconfirmed screening results shouldnot be used for non-medical purposes. ENT LARYNGOSCOPY DIAGNOSTIC [id number] 20:37:54No result entered. ?Study is non-reportable.Malia Sesherigeovanna - ExternalCOMPREHENSIVE METABOLIC [id number] 03:41:04* Test Item Value Reference Range Interpretation Comme nts GLUCOSE (test code = 2217) 108 MG/DL 70-99 H BUN (test code = 2208) 28 MG/DL 6-20 H CREATININE (test code = 2214) 0.71 MG/DL 0.80-1.40 L eGFR (2020 CKD-EPI) (test code = 09554) 106 ML/MIN/1.73 >60 CALC BUN/CREAT (test code = 2235) 39 RATIO 6-28 H SODIUM (test code = 2231) 141 MEQ/L 133-146 POTASSIUM (test code = 2228) 4.9 MEQ/L 3.5-5.4 CHLORIDE (test code = 2215) 104 MEQ/L 95-107 CARBON DIOXIDE (test code = 2206) 30 MEQ/L 19-31 CALCIUM (test code = 2208) 9.2 MG/DL 8.5-10.5 PROTEIN, TOTAL (test code = 2228) 6.1 G/DL 6.1-8.3 ALBUMIN (test code = 2200) 4.1 G/DL 3.5-5.2 CALC GLOBULIN (test code = 2240) 2.0 G/DL 1.9-3.7 CALC A/G RATIO (test code = 2233) 2.1 RATIO 1.0-2.6 BILIRUBIN, TOTAL (test code = 2206) <0.2 MG/DL <=1.2 ALKALINE PHOSPHATASE (test code = 2203) 54 U/L 40-123 AST (test code = 2217) 13 U/L 9-50 ALT (test code = 2218) 11 U/L 5-50 UNLESS OTHERWISE INDICATED, ALL TESTING PERFORMED AT [facility] [address] [place] [address] MENAGERIE CARETAKER: YASMANI ROSA M.D. CLIA NUMBER [id number] [facility] [place] [id number] CBC W/AUTO DIFF WITH [id number] 02:32:21* Test Item Value Reference Range Interpretation [...] 0.00-0.10 ABS NUCLEATED RBCS (test code = 78735) 0.00 K/UL 0.00-0.11 CBC WITH MANUAL [id number] 10:28:52* Test Item Value Reference Range Interpretation [...] 0.00-0.10 ABS NUCLEATED RBCS (test code = 88028) 0.00 K/UL 0.00-0.11 COMMENTS (test code = 1016) (NOTE) FEW ELLIPTOCYTES PLATELETS APPEAR INCREASED PSA, [id number] 03:59:32* Test Item Value Reference Range Interpretation Comme nts PSA, TOTAL (test code = 2606) 3.05 NG/ML See_Comment NOTE: Methodolog y is Audie Blake Electrochemiluminescence Immunoassay traceable to WHO reference standard 96/760. UNLESS OTHERWISE INDICATED, ALL [facility]ING [facility]FORMED [facility] [address] [place] [address] MENAGERIE CARETAKER: LARISSA AVILES M.D. CLIA NUMBER [id number] [place] [id number] [Automated message] The system which generated this result transmitted reference range: <=4.00. The reference range was not used to interpret this result as normal/abnormal. Notes Date/Time Note Provider Source 2024-01-13 14:51:39 Chief Complaint Patient presents with Surgical Follow-up Possible urinary retention Leatha Acosta LVN [facility] 2023 08:01:00 [facility] Discharge Summary REPORT#:[id number] REPORT STATUS: Signed REPORT INITIALIZATION DATE:12/27/23 TIME: 800 PATIENT: DE GARBER UNIT #: [id number] ROOM/BED: [facility] : 64 AGE: 57 SEX: M ATTEND: Tj Hatfield MD ADM AUTHOR: Tj Hatfield MD REPT SERVICE DT/TIME: 12/27/23 0801 * ALL edits or amendments must be made on the electronic/computer document * General Information Discharge date: 12/27/23 Discharge diagnosis: BPH, urinary retention Hospital course: 57M who udnerwent uncomplicated TURP on 12/25. He met all d/c criteria on POD1, and was discharged on 12/26 without issues. He is to go home with antibiotics and his walters and will have it removed in clinic on 12/29. Med Rec Med Rec Discharge meds: Continue taking these medications: [AMOXICILLIN] 1 TABLET ORAL TWICE DAILY. Instructions: PER PT- TAKING 5 DAYS PRIOR TO SURGERY Start taking the following new medications: [SODIUM CHLORIDE] 20 MILLILITERS INTRAVENOUS PREOP LEAD MATERIAL HANDLER. No Refills [SODIUM CHLORIDE KARAN] 100 MILLILITERS IRRIGATION. DIRECTED. as needed for BLOOD CLOTS No Refills [SODIUM CHLORIDE 0.9%] 0 MILLILITERS IRRIGATION. DIRECTED. No Refills Discharge Instructions PCP )( Discharge to: Home/Self Care Discharge Instructions Additional Discharge Routines: None )( Diet: Resume Home Diet/Feeds at 0802 RPT #:[id number] END OF REPORT [facility] 2023 07:57:00 [facility] Urology Progress Note REPORT#:[id number] REPORT STATUS: Signed REPORT INITIALIZATION DATE:12/27/23 TIME: 756 PATIENT: DE GARBER UNIT #: [id number] ROOM[facility]BED: [facility] : 64 AGE: 57 SEX: M ATTEND: Tj Hatfield MD ADM AUTHOR: Tj Hatfield MD REPT SERVICE DT/TIME: 12/27/23 0757 * ALL edits or amendments must be made on the electronic/computer document * Attestations Physician Attestation Reviewed findings plan: S: NAEON. AFVSS. No pain. No spasms. No oob yet. Urine clear. O: Gen: NAD Card: regualr rate Pulm: normal effort : 3-way walters in place with clear yellow urine A/P: 57M POD1 s/p TURP. Doing well, urine clear. Discharge today, meds sent to pharmacy. Cap inflow, d/c w/ walters and leg bag. Voiding trial in clinic 12/29 Please call [phone] if any questions or concerns. Tj Hatfield MD at 0759 RPT #:[id number] END OF REPORT [facility] 2023-12-26 10:31:00 [facility] DT Operative Note REPORT#:[id number] REPORT STATUS: Signed REPORT INITIALIZATION DATE:12/26/23 TIME: 103 PATIENT: DE GARBER UNIT #: [id number] ROOM/BED: [place] [address] : 63 AGE: 57 SEX: M ATTEND: Tj Hatfield MD ADM AUTHOR: Tj Hatfield MD REPT SERVICE DT/TIME: 12/26/23 1031 * ALL edits or amendments must be made on the electronic/computer document * Operative Report Operative Note Note: Patient Name: De Garber Procedure: TURP Pre-op Diagnosis: BPH, urinary retention Post-op Diagnosis: BPH, urinary retention Surgeon: Tj Hatfield MD Record Center Specialist: None Anesthesia: General Indication: 57M w/ urinary retention and indwelling walters. Discussed r/b/a of TURP. He understood and wanted to proceed. Findings: Normal urethra Trilobar prostatic hypertrophy, resected down to an open channel No perforation of capsule UOs and urinary sphicnter preserved Excellent hemostasis 22Fr 3-way catheter placed with 30cc in balloon. Procedure in detail: The patient was brought back to operating theater and time out confirming patient and procedure we performed. GETA was administered. Vanc/Gent was given. He was placed in dorsal lithotomy with SCDs and he was prepped and draped in the normal sterile fashion. We passed a cystoscope into the bladder ,taking pictures of the prostate on the way in. We identified the UOs and then resected down the intravesical median lobe. We then parked just proximal to the verumontaum and resected the prostate down to capsule. No perforations noted. We then achieved excellent hemostasis. We then used Ellik evacuator to remove all chips. We confirmed hemostasis and were satisfied. We then placed a 22Fr 3-way catheter without issue and put 30cc sterile water into the balloon. We started CBI which was clear. We secured it to his leg. This terminated the procedure. Specimen: 1) Prostate chips Drains: 22Fr 3-way w/ 30cc sterile water in balloon Complications: none Disposition: The patient was taken to PACU in good condition. He will be admitted for post-op evaluation and CBI. Tj Hatfield MD at 1034 RPT #:[id number] END OF REPORT [facility] 2023-12-26 06:25:00 [id number] [place] [address] PATIENT NAME: DE GARBER ADMIT DATE: 12/26/23 ACCOUNT NO: [id number] ROOM NO: [facility] AGE: 57 REPORT TYPE: eELECTROCARDIOGRAM REPORT SEX: M ADMITTING PHYSICIAN:Tj Hatfield MD ATTENDING PHYSICIAN:Tj Hatfield MD Order: [id number] Test Reason : TURP Test Date/Time Stamp: SatDec 26 2023 06:25:40 Blood Pressure : / mmHG Vent. Rate : 068 BPM Atrial Rate : 068 BPM P-R Int : 144 ms QRS Dur : 096 ms QT Int : 406 ms P-R-T Axes : 082 079 081 degrees QTc Int : 431 ms Normal sinus rhythm Normal ECG PRE_OP Confirmed by DAJUAN REYES MD ([id number]) on 12/26/2023 2:45:45 PM Referred By: Tj Hatfield Confirmed by:DAJUAN REYES MD at 1445 PATIENT NAME: DE GARBER [facility] 2023-12-18 14:23:36 Chief Complaint Patient presents with Follow-Up Visit Naa GAN [facility] 2023-11-15 14:51:02 Chief Complaint Patient presents with Pre-Op Exam Pre op exam and urine culture collection Leatha Acosta LVN [facility] 2023-10-16 15:22:40 Chief Complaint Patient presents with Cystoscopy And TRUS Patient was presented consent form. Consent form was explained by the nurse and was signed by the patient. Vital signs taken. Karin Smith LVN [facility] 2023-09-30 13:32:53 Chief Complaint Patient presents with Follow-Up Visit Hospital f/u for UTI. [facility] 2023-09-26 15:09:06 Chief Complaint Patient presents with Throat Problem No swallow study Had cancer on the neck- make sure it hasn't came back Occasionally food items would choke him when swallowing liquid and food ELAINE Stacy Roula HENRY [facility] 2023-09-24 08:21:54 Chief Complaint Patient presents with Follow-up Hospitalization ER F/U Was in the Hospital for 3 days then ended up in the ER/ Now has a Cath.needs referral to urology Candy Ma LVN [facility]
[2024-01-18] MEDS ORDERED: IBUPROFEN 400 MG TAB ONE (15:59)
--- NOTE | 2024-01-18 16:19 | RAD REPORT ---
EXAM DESCRIPTION: RAD - Chest Single View - 01/18/2024 4:00 pm CLINICAL HISTORY: FEVER Chest pain. COMPARISON: <Comparisons> FINDINGS: Portable technique limits examination quality. The lungs are grossly clear. The heart is normal in size. No displaced fractures. IMPRESSION: No acute intrathoracic process suspected.
[2024-01-18 16:23] LABS: Absolute Lymphocytes (CBC) 0.3 K/uL (0.7-4.9); Absolute Monocytes 1.1 K/uL (0.1-1.3); Absolute Neutrophil 11.8 K/uL (1.8-8.0); Basophils % 0.3 % (0-1.3); Eosinophils % 0.3 % (0-4.4); Hematocrit 38.6 % (39.6-49.0); Hemoglobin 12.5 g/dL (13.6-17.9); Lymphocytes % 2.5 % (15.3-44.8); MCH 27.8 pg (27.0-35.0); MCHC 32.5 g/dL (32.0-36.0); MCV 85.6 fL (80-100); MPV 6.5 fL (7.6-11.3); Monocytes % 8.3 % (3.3-12.3); Neutrophils % 88.6 % (41.7-73.7); Platelets 262 thou/uL (152-406); RBC Red Blood Cell Count 4.51 M/uL (4.33-5.43); Red Cell Distribution Width 15.2 % (12.1-15.2)
[2024-01-18 16:28] LABS: Anion Gap 7.8 mEq/L (5.0-15.0); Potassium 3.8 mEq/L (3.5-5.1)
[2024-01-18 16:31] LABS: SARS-CoV-2 Antigen CONTROL BLUE LINE VIS/BG OK; SARS-CoV-2 Antigen Rapid Res Negative (Negative)
[2024-01-18 17:03] LABS: Blood Morphology Comment NOT SEEN (NOT SEEN); Platelet Estimate ADEQ; White Blood Cell Scan OK (OK)
--- NOTE | 2024-01-18 17:30 | EDPHYS ---
Physician Documentation [facility] Name: De Arnold Jr Age: 58 yrs Sex: Male : 1965 Arrival Date: 01/18/2024 Time: 15:46 Bed 8 Private MD: ED Physician Phil Johnson HPI: 01/17 15:40 This 58 yrs old Male presents to ER via Unassigned with complaints of Flu Symptoms, jh7 Fever. 15:40 58-year-old male with a past medical history of esophageal cancer in remission since jh7 2011 presents to the ER for flulike symptoms since last night. The patient complains of fever, headache, nausea, and bodyaches since last night. Reports that he took Tylenol a few hours ago. EMS initiated 1 L of normal saline and reports tachycardia at 115-120. Denies chest pain, shortness of breath, vomiting, diarrhea, or any other symptoms at this time.. Historical: - Allergies: 15:51 Cialis; db - PMHx: 15:51 Cancer; db - Immunization history:: Adult Immunizations unknown. - Infectious Disease History:: Denies. - Social history:: Smoking status: Patient/guardian denies using tobacco, the patient reports quitting approximately 24 years ago. ROS: 15:40 Constitutional: Per HPI jh7 Exam: 15:40 Constitutional: This is a well developed, well nourished patient who is awake, alert, jh7 and in no acute distress. Head/Face: Normocephalic, atraumatic. ENT: Nares patent. No nasal discharge, no septal abnormalities noted. Tympanic membranes are normal and external auditory canals are clear. Oropharynx with no redness, swelling, or masses, exudates, or evidence of obstruction, uvula midline. Mucous membranes moist. Neck: Trachea midline, no thyromegaly or masses palpated, and no cervical lymphadenopathy. Supple, full range of motion without nuchal rigidity, or vertebral point tenderness. No Meningismus. Cardiovascular: Regular rate and rhythm with a normal S1 and S2. No gallops, murmurs, or rubs. Normal PMI, no JVD. No pulse deficits. Respiratory: Lungs have equal breath sounds bilaterally, clear to auscultation and percussion. No rales, rhonchi or wheezes noted. No increased work of breathing, no retractions or nasal flaring. Abdomen/GI: Soft, non-tender, with normal bowel sounds. No distension or tympany. No guarding or rebound. No evidence of tenderness throughout. Back: No spinal tenderness. No costovertebral tenderness. Full range of motion. Skin: Warm, dry with normal turgor. Normal color with no rashes, no lesions, and no evidence of cellulitis. MS/ Extremity: Pulses equal, no cyanosis. Neurovascular intact. Full, normal range of motion. Neuro: Awake and alert, GCS 15, oriented to person, place, time, and situation. Cranial nerves II-XII grossly intact. Motor strength 5/5 in all extremities. Sensory grossly intact. Cerebellar exam normal. Normal gait. Vital Signs: 15:38 BP 122 / 82; Pulse 120; Resp 18; Temp 100.9; Pulse Ox 98% on R/A; Weight 54.43 kg; db Height 5 ft. 7 in. ; 16:00 BP 135 / 81; Pulse 113; Resp 18; Pulse Ox 98% on R/A; db 17:00 BP 106 / 80; Pulse 111; Resp 20; Pulse Ox 97% on R/A; db 17:14 Temp 100.3(O); db 17:30 BP 109 / 65; Pulse 95; Resp 16; Pulse Ox 98% on R/A; db 15:38 Body Mass Index 18.79 (54.43 kg, 170.18 cm) db MDM: 15:47 Patient medically screened. [facility] 17:15 Differential diagnosis: viral Infection, bacterial infection, URI, meningitis. Data [facility] reviewed: vital signs, nurses notes, lab test result(s). I considered the following discharge prescriptions or medication management in the emergency department Medications were administered in the Emergency Department. See MAR. Historians other than the Patient: EMS: EMS. Care significantly affected by the following chronic conditions: Cancer, (in remission since 2011). Counseling: I had a detailed discussion with the patient and/or guardian regarding the historical points, exam findings, and any diagnostic results supporting the discharge/admit diagnosis, to return to the emergency department if symptoms worsen or persist or if there are any questions or concerns that arise at home. Response to treatment: the patient's symptoms have mildly improved after treatment. 17:15 ED course: Patient's heart rate decreased to 100, headache was reported that a 2 out of jh7 10, no nuchal rigidity, no photophobia, no nausea/vomiting. Patient mainly complained of bodyaches and headache with his fever. Likely viral etiology. Advised to increase p.o. fluid intake, alternate Tylenol/ibuprofen and rest at home. If he experiences any of the symptoms listed above, he was advised to return to the ER for further eval.. 01/17 15:49 Order name: Flu; Complete Time: 17:04 [facility] 01/17 15:49 Order name: SARS RAPID; Complete Time: 16:35 [facility] 01/17 15:49 Order name: BMP; Complete Time: 16:35 [facility] 01/17 15:49 Order name: CBC with Diff; Complete Time: 17:04 [facility] 01/17 16:32 Order name: CBC Smear Scan; Complete Time: 17:04 [facility] 01/17 15:49 Order name: XRAY Chest (1 view); Complete Time: 16:35 [facility] 01/17 15:49 Order name: Misc. Order: continue fluids initiated by EMS; Complete Time: 16:11 [facility] 01/17 17:05 Order name: Recheck Vital Signs; Complete Time: 17:52 [facility] Administered Medications: 16:00 Drug: Ibuprofen PO 800 mg PO once Route: PO; db 18:02 Follow up: Response: No adverse reaction; Temperature is decreased db 17:39 Not Given (Physician Discretion): ns 0.9% 1000 ml IV at 1 bolus Per protocol; 1000 mL jh7 bolus Disposition: 20:11 Co-signature as Attending Physician, Phil Johnson MD I reviewed the patient's care rt provided by the Advanced Practice Provider and agree with the diagnosis and treatment plan. Disposition Summary: 01/18/24 17:29 Discharge Ordered Notes: Location: Home [facility] Problem: new [facility] Symptoms: have improved jh Condition: Stable [facility] Diagnosis - Fever, unspecified 7 - Flulike illness [facility] Followup: [facility] - With: Private Physician - When: 2 - 3 days - Reason: Recheck today's complaints Discharge Instructions: - Discharge Summary Sheet [facility] - Fever, Adult jh7 Forms: - Medication Reconciliation Form [facility] - Patient Portal Instructions [facility] - Leadership Thank You Letter [facility] Signatures: Dispatcher [employer] Olivia Hinton FNP FNP jh7 [place] Charlene, JERICHO RN db Phil Johnson MD MD rt
--- NOTE | 2024-01-18 17:30 | ER ---
Nurse's Notes [facility] Name: De Arnold Jr Age: 58 yrs Sex: Male : 1965 Arrival Date: 01/18/2024 Time: 15:46 Bed 8 Private MD: Diagnosis: Fever, unspecified;Flulike illness Presentation: 01/17 15:38 Chief complaint: EMS states: FLU LIKE SYMPTOMS, NAUSEA AND BODY ACHES WITH FEVER db STARTED LAST NIGHT. TOOK TYLENOL \T\ 1000 AND TEMP 100.3 BY EMS. Coronavirus screen: Client denies travel out of the [place] in the last 14 days. At this time, the client does not indicate any symptoms associated with coronavirus-19. Ebola Screen: Patient negative for fever greater than or equal to 101.5 degrees Fahrenheit, and additional compatible Ebola Virus Disease symptoms Patient denies exposure to infectious person. Patient denies travel to an Ebola-affected area in the 21 days before illness onset. No symptoms or risks identified at this time. Initial Sepsis Screen: Does the patient meet any 2 criteria? No. Patient's initial sepsis screen is negative. Does the patient have a suspected source of infection? No. Patient's initial sepsis screen is negative. Risk Assessment: Do you want to hurt yourself or someone else? Patient reports no desire to harm self or others. Onset of symptoms was January 18, 2024. Care prior to arrival: Medication(s) given: Normal saline infusion, 200 ML IV initiated. 20 GA, in the right antecubital area. 15:38 Method Of Arrival: EMS: [facility] db 15:38 Acuity: MARIBETH 2 db Triage Assessment: 15:51 General: Appears in no apparent distress. uncomfortable, Behavior is calm, cooperative. db Pain: Complains of pain in BODY. Neuro: Level of Consciousness is awake, alert, obeys commands, Oriented to person, place, time, situation. Cardiovascular: Rhythm is sinus tachycardia. Respiratory: Airway is patent Respiratory effort is even, unlabored, Respiratory pattern is regular, symmetrical. GI: Reports nausea. Historical: - Allergies: 15:51 Cialis; db - PMHx: 15:51 Cancer; db - Immunization history:: Adult Immunizations unknown. - Infectious Disease History:: Denies. - Social history:: Smoking status: Patient/guardian denies using tobacco, the patient reports quitting approximately 24 years ago. Screenin:11 [facility] ED Fall Risk Assessment (Adult) History of falling in the last 3 months, db including since admission No falls in past 3 months (0 pts) Confusion or Disorientation No (0 pts) Intoxicated or Sedated No (0 pts) Impaired Gait No (0 pts) Mobility Assist Device Used No (0 pt) Altered Elimination No (0 pt) Score/Fall Risk Level 0 - 2 = Low Risk Oriented to surroundings, Maintained a safe environment. Abuse screen: Denies threats or abuse. Denies injuries from another. Nutritional screening: No deficits noted. Tuberculosis screening: No symptoms or risk factors identified. Assessment: 15:45 Reassessment: Patient appears in no apparent distress at this time. SEE TRIAGE FOR db INITIAL ASSESSMENT. General: Appears in no apparent distress. comfortable, Behavior is calm, cooperative. 17:52 Reassessment: Patient appears in no apparent distress at this time. Patient and/or db family updated on plan of care and expected duration. Pain level reassessed. Patient is alert, oriented x 3, equal unlabored respirations, skin warm/dry/pink. Patient states feeling better. Patient states symptoms have improved. Pain: Pain currently is 2 out of 10 on a pain scale. Neuro: Level of Consciousness is awake, alert, obeys commands, Oriented to person, place, time, situation. Vital Signs: 15:38 BP 122 / 82; Pulse 120; Resp 18; Temp 100.9; Pulse Ox 98% on R/A; Weight 54.43 kg; db Height 5 ft. 7 in. ; 16:00 BP 135 / 81; Pulse 113; Resp 18; Pulse Ox 98% on R/A; db 17:00 BP 106 / 80; Pulse 111; Resp 20; Pulse Ox 97% on R/A; db 17:14 Temp 100.3(O); db 17:30 BP 109 / 65; Pulse 95; Resp 16; Pulse Ox 98% on R/A; db 15:38 Body Mass Index 18.79 (54.43 kg, 170.18 cm) ED Course: 15:47 Patient arrived in ED. 15:47 Olivia Bolden FNP is [facility] 15:47 Phil Johnson MD is Attending Physician. [facility] 15:51 Triage completed. db 15:56 Arm band placed on Patient placed in an exam room. db 16:02 XRAY Chest (1 view) In Process Unspecified. EDMS 16:10 Charlene Rios, RN is Primary Nurse. db 16:11 Patient has correct armband on for positive identification. Bed in low position. Call db light in reach. Side rails up X 1. Client placed on continuous cardiac and pulse oximetry monitoring. NIBP monitoring applied. front desk monitor on. Pulse ox on. NIBP on. Warm blanket given. 16:11 Initial lab(s) drawn, by me, sent to lab. COVID swab sent to lab. Flu and/or RSV swab db sent to lab. Maintain EMS IV. Dressing intact. Good blood return noted. Site clean \T\ dry. Gauge \T\ site: 20 G RAC. 18:01 Provided Education on: DISCHARGE AND FOLLOWUP AND FEVER CARE AT HOME. db 18:01 No provider procedures requiring assistance completed. IV discontinued, intact, db bleeding controlled, No redness/swelling at site. Administered Medications: 16:00 Drug: Ibuprofen PO 800 mg PO once Route: PO; db 18:02 Follow up: Response: No adverse reaction; Temperature is decreased db 17:39 Not Given (Physician Discretion): ns 0.9% 1000 ml IV at 1 bolus Per protocol; 1000 mL [facility] bolus Medication: 18:01 VIS not applicable for this client. db Outcome: 17:29 Discharge ordered by . [facility] 18:01 Discharged to home ambulatory, with family, db 18:01 Condition: stable 18:01 Discharge instructions given to patient, Instructed on discharge instructions, follow up and referral plans. 18:02 Patient left the ED. db Signatures: Dispatcher [employer] EDAK Olivia Bolden, AUTOMATIC SPOOLER OPERATOR AUTOMATIC SPOOLER OPERATOR [facility] Charlene Rios, RN RN db
[2024-01-18 20:34] VITALS: TEMP 100.3
[2024-01-18 20:35] VITALS: BP 109/65; O2SAT 98
== END 2024-01-18 18:02 | disposition home or self-care (01) ==
LOC: ER 15:46
DX: J10.1 Influenza due to other identified influenza virus with other respiratory manifestations (principal); Z11.52 Encounter for screening for COVID-19
CPT/HCPCS: 36415; 71045; 80048; 85025; 87804; 87811; 99284